=== PATIENT | female | born 1955 | race Caucasian/White ===

== ENCOUNTER → 2016-08-11 | Outpatient (CLI) | payer BC ==
--- NOTE | 2016-08-11 15:42 | CR ---
EXAMINATION: Left ankle and left foot HISTORY: Pain COMPARISON: 02/24/2015 TECHNIQUE: 3 views of the left ankle and 3 views of the left foot. FINDINGS: There is a single screw fixating the lateral malleolus. Ankle mortise appears preserved. N o fracture or dislocation is noted. The talar dome is normal. Mild degenerative changes are noted wi thin the midfoot. 2 screws are noted fixating the first metatarsal with changes secondary to bunion repair. Moderate to severe osteophytic changes are noted at the first MTP joint with joint space roosevelt rowing and hypertrophic changes. Bone mineralization is normal. No focal soft tissue swelling. IMPRESSION: 1. Single screw fixating the lateral malleolus. 2. Mild degenerative changes within the midfoot and advanced degenerative changes at the first MTP j oint. 3. Postsurgical changes secondary to bunionectomy.
== END ==
LOC: MW.CHORTHO 07:48
PROVIDERS: ATTEND Orthopaedic Surgery
DX: M79.672 Pain in left foot (principal); M25.572 Pain in left ankle and joints of left foot; Z96.7 Presence of other bone and tendon implants; Z98.890 Other specified postprocedural states
CPT/HCPCS: 73610-26-LT; 73610-LT; 73630-26-LT; 73630-LT

== ENCOUNTER → 2016-08-17 | Outpatient (CLI) | payer BC ==
--- NOTE | 2016-08-18 10:50 | US ---
EXAMINATION: Right digital diagnostic mammogram and targeted ultrasound. HISTORY: Abnormal screening. Comparison is made to previous studies dated 07/19/2016, 05/13/2014.. FINDINGS: A right ML view was obtained. Spot compression images obtained in the CC and MLO project ions. Following spot compression, the two previously demonstrated asymmetries are persistent. These measur e approximately 6 mm in size and have spiculated margins. These are relatively close to the areola a nd are located at the approximate 8 o'clock and 9 o'clock positions, 2 cm from the nipple. There is a small area of shadowing noted at the approximate 8 o'clock position of the right breast m easuring 5 mm, likely representing one of the two-view asymmetries. The asymmetry at the approximat e 9 o'clock position is not definitively characterized sonographically. IMPRESSION: BI-RADS category IV -suspicious findings. There are two periareolar asymmetries located at the approximate 8 o'clock and 9 o'clock positions of the right breast. Tissue sampling is recomm ended. Only one of the asymmetries is noted sonographically. These are amenable to stereotactic bio psy or localization. THE FALSE-NEGATIVE RATE OF MAMMOGRAM IS APPROXIMATELY 10%. MANAGEMENT OF A PALPABLE ABNORMALITY MUST BE BASED UPON CLINICAL GROUNDS. SENSITIVITY FOR DETECTION OF ABNORMALITIES IN DENSE BREASTS IS LOW. NOTE: A letter will be sent to the patient regarding findings. [facility] -- ANTONI Garcia [phone] - FAX [phone]
== END ==
LOC: MW.MAM 08:26
PROVIDERS: ATTEND Student in an Organized Health Care Education/Training Program
DX: R92.8 Other abnormal and inconclusive findings on diagnostic imaging of breast (principal)
CPT/HCPCS: 76642; G0206

== ENCOUNTER → 2016-08-19 | Outpatient (CLI) | payer BC ==
--- NOTE | 2016-08-19 10:21 | CR ---
EXAMINATION: Two-view chest (PA and Lateral views). HISTORY: Preprocedural examination. FINDINGS: The trachea is midline. The cardiomediastinal silhouette is within normal limits. No pulmonary infil trates, effusions or pneumothorax. Mild hyperinflation. Osseous structures appear osteopenic. IMPRESSION: No acute cardiopulmonary process.
[2016-08-19 10:26] LABS: CHLORIDE,CL 93 mmol/L (98-110); SODIUM,NA 129 mmol/L (136-146)
== END ==
LOC: MW.CHFP 09:42
PROVIDERS: ATTEND Student in an Organized Health Care Education/Training Program
DX: Z01.818 Encounter for other preprocedural examination (principal); R74.8 Abnormal levels of other serum enzymes; E78.00 Pure hypercholesterolemia, unspecified; R03.0 Elevated blood-pressure reading, without diagnosis of hypertension
CPT/HCPCS: 36415; 71020; 71020-26; 80048; 81001; 85025; 85610; 93005

== ENCOUNTER 2016-09-12 08:37 | Day surgery (SDC) | payer BC ==
[~2016-09-12 08:37] MED LIST: Lactated Ringers 1,000 ML IV SCH
[2016-09-12] MEDS ORDERED: Lidocaine 1% 20 ML MDV ONE (08:55)
[2016-09-12] MEDS ORDERED: Bupivacaine 0.5% 10 ML SDV ONE (08:55)
--- NOTE | 2016-09-12 09:42 | PCM.PREANE ---
Preanesthetic Assessment - Anesthesia/Transfusion/Family Hx Anesthesia History: Prior Anesthesia Without Reaction Transfusion History: No Prior Transfusion(s) - Review of Systems General: No Symptoms Pulmonary: No Symptoms Cardiovascular: No Symptoms Gastrointestinal: No symptoms Neurological: No Symptoms Other: Reports: None - Physical Assessment O2 Sat by Pulse Oximetry: 100 Respiratory Rate: 166 Vital Signs: Last Vital Signs Temp 36.4 C 09/12/16 09:00 Pulse 73 09/12/16 09:00 Resp 166 H 09/12/16 09:00 BP 163/100 H 09/12/16 09:00 Pulse Ox 100 09/12/16 09:00 Height: 1.63 m Weight: 59.421 kg ASA Class: 3 Mental Status: Alert & Oriented x3 Airway Class: Mallampati = 2 Dentition: Reports: [place](s) (multiple upper, front) Thyro-Mental Finger Breadths: 3 Mouth Opening Finger Breadths: 3 ROM/Head Extension: Full Lungs: Clear to auscultation, Normal respiratory effort Cardiovascular: Regular Rate, Regular Rhythm, No Murmurs - Allergies Allergies/Adverse Reactions: Allergies Allergy/AdvReac Type Severity Reaction Status Date / Time No Known Allergies Allergy Verified 12/15/14 08:57 - Blood Blood Available: No - Anesthesia Plan Beta Ariane: Metoprolol Med Last Dose Date: 09/12/16 Med Last Dose Time: 08:00 - Acknowledgements Anesthesia Type Planned: General Anesthesia Pt an Appropriate Candidate for the Planned Anesthesia: Yes Alternatives and Risks of Anesthesia Discussed w Pt/Guardian: Yes Pt/Guardian Understands and Agrees with Anesthesia Plan: Yes PreAnesthesia Questionnaire HEENT History: Reports: Cataract, Other (see below) Other HEENT History: wears glasses Cardiovascular History: Reports: High cholesterol, Hypertension Gastrointestinal History: Reports: Other (see below) Other Gastrointestinal History: occasional heartburn, elevated liver enzymes on last testing Genitourinary History: Reports: None 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: Musculoskeletal History: Reports: Arthritis, Fracture, Fibromyalgia Neurological History: Reports: Concussion Psychiatric History: Reports: Anxiety, Depression, Other (see below) ( claustrophobia) Endocrine/Metabolic History: Reports: Other (see below) (h/o hyponatremia) - Past Surgical History Head Surgeries/Procedures: Reports: None GI Surgical History: Reports: Appendectomy, Cholecystectomy, EGD Female Surgical History: Reports: Breast biopsy, Breast reduction, Hysterectomy Other Female Surgeries/Procedures: hx breast reduction, laparoscopy for lysis of adhesions, hysterectomy, breast bx Musculoskeletal Surgical History: Reports: Carpal tunnel, Shoulder surgery Other Musculoskeletal Surgeries/Procedures:: hx bilat. bunionectomy, shoulder surgery (clavicle resection), surgical repair fx ankle with plate and screws, CTR - SUBSTANCE USE Smoking Status *Q: Light Tobacco Smoker Tobacco Use Within Last Twelve Months: Cigarettes Days Per Week of Alcohol Use: 1 Recreational Drug Use History: No - HOME MEDS Home Medications: Home Meds Zolpidem Tartrate 10 mg PO BEDTIME PRN 12/15/14 [History] traMADol [Ultram] 50 mg PO ASDIRECTED PRN 12/15/14 [History] Metoprolol Succinate 25 mg PO DAILY 09/07/16 [History] - CURRENT (IN HOUSE) MEDS Current Meds: Current Medications Lactated Ringer's (Ringers, Lactated) 1,000 mls @ 125 mls/hr IV ASDIRECTED RAISA Last Admin: 09/12/16 09:19 Dose: 125 mls/hr Discontinued Medications Bupivacaine HCl (Sensorcaine-Mpf 0.5%) Confirm Administered Dose 20 ml .ROUTE .STK-MED ONE Stop: 09/12/16 08:56 Lidocaine HCl (Xylocaine 1%) Confirm Administered Dose 20 ml .ROUTE .STK-MED ONE Stop: 09/12/16 08:56
[2016-09-12] MEDS ORDERED: Lidocaine 2% 5 ML SDV ONE (11:02)
[2016-09-12] MEDS ORDERED: Midazolam 1 MG/ML 2 ML SDV ONE (11:03)
[2016-09-12] MEDS ORDERED: Propofol 200 MG/20 ML SDV ONE ×2 (11:03→12:17)
[2016-09-12] MEDS ORDERED: Ondansetron 4 MG/2 ML SDV ONE (11:03)
[2016-09-12] MEDS ORDERED: fentaNYL 250 MCG/5 ML SDV ONE (11:03)
[2016-09-12] MEDS: fentaNYL 100 MCG/2 ML SDV IVPUSH PRN ×2 (12:53→12:59)
[2016-09-12] MEDS ORDERED: Acetaminophen/HYDROcodone 325-5 MG Tab PO PRN (12:54)
[2016-09-12] MEDS ORDERED: Morphine 10 MG/ML Syringe IVPUSH PRN (12:54)
[2016-09-12] MEDS ORDERED: Lactated Ringers 1,000 ML IV SCH (13:00)
--- NOTE | 2016-09-12 13:00 | PCM.OPNOTE ---
- General Post-Op/Procedure Note Date of Surgery/Procedure: 09/12/16 Operative Procedure(s): Needle localization right breast biopsy Pre Op Diagnosis: Class IV mammogram Post-Op Diagnosis: Same Anesthesia Technique: Local, MAC (ASA II) Primary Surgeon: Vincenzo Mckenna Fluid Replacement, Intraop: 1,300 EBL in mLs: 5 Condition: Good Free Text/Narrative:: Dictation [id number]
--- NOTE | 2016-09-12 13:09 | PCM.POSTAN ---
POST ANESTHESIA ASSESSMENT - MENTAL STATUS Mental Status: alert, oriented - RESPIRATORY Respiratory Status: respiratory rate WNL, airway patent, O2 saturation stable - CARDIOVASCULAR CV Status: pulse rate WNL, blood pressure stable - PAIN Pain Score: 6 - POST OP HYDRATION Hydration Status: adequate & stable
--- NOTE | 2016-09-12 13:47 | MY ---
EXAMINATION: Stereotactic wire localization and specimen mammogram HISTORY: Abnormal findings COMPARISON: 08/17/2016 TECHNIQUE: The procedure, risks, and benefits were discussed with the patient. The patient was place d on the mammogram table and an inferior approach was selected. The more conspicuous mass was identi fied and the overlying area was sterilely prepped. 1% lidocaine was administered for local anesthesi a. A localization needle was advanced. An image was obtained using and ML projection demonstrated ad equate localization of the subareolar mass. The hook was deployed. The second, previously described mass was not well characterized mammographically for localization. The specimen mammogram demonstrates the region of concern included. IMPRESSION: 1. Successful mammographic guided stereotactic right breast localization. 2. The specimen mammogram demonstrates the more conspicuous mass. The second, previously described m ass was not well identified.
[2016-09-12 14:38] VITALS: BP 153/101
--- NOTE | 2016-09-12 20:13 | OR ---
SURGEON: Vincenzo Mckenna M.D. DATE OF PROCEDURE: 09/12/2016 OPERATION PERFORMED: Needle localization, right breast biopsy. ANESTHESIA: Local MAC. ASA CLASSIFICATION: II. PREOPERATIVE DIAGNOSIS: Class 4 mammogram. POSTOPERATIVE DIAGNOSIS: Class 4 mammogram. DESCRIPTION OF PROCEDURE: The patient initially was taken to Radiology, where she underwent needle localization mammographically. Following review of that, the patient was taken to the operating room and placed on the operating table in the supine position. Time-out was called for appropriate identification of the patient and procedure. The surgical site was marked by the needle localization. The right anterior chest was then prepped with Betadine solution and sterile drapes were applied. The skin around the localizing needle was infiltrated with 1% Xylocaine and 0.5% Marcaine solution. Elliptical skin incision was made around the localizing needle, stabilizing the needle with an Allis clamp. Dissection was then carried in a circumferential fashion removing the specimen around the needle and being careful not to divide the needle. The specimen, once it was removed, was sent to Radiology for radiologic confirmation. Hemostasis was obtained with the use of electrocautery. Radiologic confirmation was obtained. The wound was then inspected for hemostasis. The subcutaneous tissue was closed with running 3-0 Polysorb and the skin with subcuticular 4-0 Monocryl, reinforced with Steri- Strips. Well-padded pressure dressing was applied and tape securely in place. Sponge, needle, and instrument counts were all correct. The patient tolerated the procedure well and was taken to recovery room in stable condition. ASA classification is II. INTRAOPERATIVE FLUID REPLACEMENT: 1300 mL of crystalloid. ESTIMATED BLOOD LOSS: 5 mL. MARIYA / ALTHEA /[id number]
== END 2016-09-12 14:22 | disposition home or self-care (01) ==
LOC: MW.SDS 08:37
PROVIDERS: ATTEND Surgery
PROC: 0HBT0ZX Excision of Right Breast, Open Approach, Diagnostic (ICD-10-PCS; principal; 2016-09-12)
DX: C50.911 Malignant neoplasm of unspecified site of right female breast (principal); Z17.0 Estrogen receptor positive status [ER+]; F41.9 Anxiety disorder, unspecified; F32.9 Major depressive disorder, single episode, unspecified; I10 Essential (primary) hypertension; M19.90 Unspecified osteoarthritis, unspecified site; M19.079 Primary osteoarthritis, unspecified ankle and foot; F17.210 Nicotine dependence, cigarettes, uncomplicated; E78.00 Pure hypercholesterolemia, unspecified; M79.7 Fibromyalgia; Z87.440 Personal history of urinary (tract) infections; Z90.49 Acquired absence of other specified parts of digestive tract; Z90.710 Acquired absence of both cervix and uterus; Z98.890 Other specified postprocedural states; Z79.899 Other long term (current) drug therapy
CPT/HCPCS: 19125; 19281; 76098; 88307; A9270; J2250; J2405; J3010; J7120; 00400; J2704

== ENCOUNTER → 2016-09-14 | Outpatient (CLI) | payer BC ==
[2016-09-14 12:32] LABS: CHLORIDE,CL 101 mmol/L (98-110); SODIUM,NA 137 mmol/L (136-146)
== END ==
LOC: MW.CHFP 11:19
PROVIDERS: ATTEND Student in an Organized Health Care Education/Training Program
DX: E87.1 Hypo-osmolality and hyponatremia (principal)
CPT/HCPCS: 36415; 80048; 83930; 83935

== ENCOUNTER 2016-10-21 08:32 | Day surgery (SDC) | payer BC ==
[~2016-10-21 08:32] MED LIST changes: +Bupivacaine 0.5% 30 ML SDV ONE; +Methylene Blue 50 MG/10 ML Ampule IV ONE; +ceFAZolin 1 GM Vial ONE
[2016-10-21] MEDS ORDERED: Lidocaine 2% 5 ML SDV ONE (08:39)
[2016-10-21] MEDS ORDERED: fentaNYL 100 MCG/2 ML SDV ONE ×2 (08:39→12:31)
[2016-10-21] MEDS ORDERED: Midazolam 1 MG/ML 2 ML SDV ONE (08:39)
[2016-10-21] MEDS ORDERED: Propofol 200 MG/20 ML SDV ONE (08:39)
[2016-10-21] MEDS ORDERED: Ondansetron 4 MG/2 ML SDV ONE (08:39)
--- NOTE | 2016-10-21 08:54 | PCM.PREANE ---
Preanesthetic Assessment - Anesthesia/Transfusion/Family Hx Anesthesia History: Prior Anesthesia Without Reaction Family History of Anesthesia Reaction: No Transfusion History: No Prior Transfusion(s) - Review of Systems General: No Symptoms Pulmonary: No Symptoms Cardiovascular: No Symptoms Gastrointestinal: No symptoms Neurological: No Symptoms Other: Reports: None - Physical Assessment NPO Status Date: 10/20/16 Height: 1.57 m Weight: 59.874 kg ASA Class: 2 Mental Status: Alert & Oriented x3 Airway Class: Mallampati = 1 Dentition: Reports: Normal Dentition ROM/Head Extension: Full Lungs: Clear to auscultation, Normal respiratory effort Cardiovascular: Regular Rate, Regular Rhythm - Allergies Allergies/Adverse Reactions: Allergies Allergy/AdvReac Type Severity Reaction Status Date / Time No Known Allergies Allergy Verified 12/15/14 08:57 - Blood Blood Available: Yes - Anesthesia Plan Pre-Op Medication Ordered: None - Acknowledgements Anesthesia Type Planned: General Anesthesia Pt an Appropriate Candidate for the Planned Anesthesia: Yes Alternatives and Risks of Anesthesia Discussed w Pt/Guardian: Yes Pt/Guardian Understands and Agrees with Anesthesia Plan: Yes Additional Comments: problem list: htn, smoker PreAnesthesia Questionnaire HEENT History: Reports: Cataract, Other (See Below) Other HEENT History: wears glasses Cardiovascular History: Reports: High Cholesterol, Hypertension Gastrointestinal History: Reports: Other (See Below) Other Gastrointestinal History: occasional heartburn, elevated liver enzymes on last testing Genitourinary History: Reports: None 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: Musculoskeletal History: Reports: Arthritis, Fracture, Fibromyalgia Neurological History: Reports: Concussion Psychiatric History: Reports: Anxiety, Depression, Other (See Below) Endocrine/Metabolic History: Oncologic (Cancer) History: Reports: Breast - Past Surgical History Head Surgeries/Procedures: Reports: None GI Surgical History: Reports: Appendectomy, Cholecystectomy, EGD Female Surgical History: Reports: Breast Biopsy, Breast Reduction, Hysterectomy Other Female Surgeries/Procedures: hx breast reduction, laparoscopy for lysis of adhesions, hysterectomy, breast bx Musculoskeletal Surgical History: Reports: Carpal Tunnel, Shoulder Surgery Other Musculoskeletal Surgeries/Procedures:: hx bilat. bunionectomy, shoulder surgery (clavicle resection), surgical repair fx ankle with plate and screws, CTR - SUBSTANCE USE Smoking Status *Q: Light Tobacco Smoker Tobacco Use Within Last Twelve Months: Cigarettes Days Per Week of Alcohol Use: 1 Recreational Drug Use History: No - HOME MEDS Home Medications: Home Meds Metoprolol Succinate 25 mg PO DAILY 09/07/16 [History] Hydrocodone/Acetaminophen [Hydrocodon-Acetaminophen 5-325] 1 tab PO ASDIRECTED PRN 10/19/16 [History] - CURRENT (IN HOUSE) MEDS Current Meds: Current Medications Lactated Ringer's (Ringers, Lactated) 1,000 mls @ 125 mls/hr IV ASDIRECTED RAISA Discontinued Medications Bupivacaine HCl (Marcaine 0.5%) Confirm Administered Dose 30 ml .ROUTE .STK-MED ONE Stop: 10/21/16 07:25 Cefazolin Sodium (Ancef) Confirm Administered Dose 1 gm .ROUTE .STK-MED ONE Stop: 10/21/16 07:24 Fentanyl (Sublimaze) Confirm Administered Dose 100 mcg .ROUTE .STK-MED ONE Stop: 10/21/16 08:40 Cefazolin Sodium/Dextrose (Ancef) Confirm Administered Dose 50 mls @ as directed .ROUTE .STK-MED ONE Stop: 10/21/16 08:40 Lidocaine (Xylocaine-Mpf 2%) Confirm Administered Dose 5 ml .ROUTE .STK-MED ONE Stop: 10/21/16 08:40 Methylene Blue (Provayblue) Confirm Administered Dose 100 mg IV .STK-MED ONE Stop: 10/21/16 07:24 Midazolam HCl (Versed 1 Mg/Ml) Confirm Administered Dose 2 mg .ROUTE .STK-MED ONE Stop: 10/21/16 08:40 Ondansetron HCl (Zofran) Confirm Administered Dose 4 mg .ROUTE .STK-MED ONE Stop: 10/21/16 08:40 Propofol (Diprivan 20 Ml) Confirm Administered Dose 200 mg .ROUTE .STK-MED ONE Stop: 10/21/16 08:40
[2016-10-21] MEDS ORDERED: ePHEDrine 50 MG/ML SDV ONE (12:05)
[2016-10-21] MEDS ORDERED: HYDROmorphone 2 MG/ML Syringe ONE (13:11)
[2016-10-21] MEDS ORDERED: Ketorolac 30 MG/ML SDV ONE (13:48)
[2016-10-21] MEDS ORDERED: Acetaminophen/oxyCODONE 325-7.5 MG Tab PO PRN (13:55)
[2016-10-21] MEDS ORDERED: Morphine 10 MG/ML Syringe IVPUSH PRN (13:55)
[2016-10-21] MEDS: fentaNYL 100 MCG/2 ML SDV IVPUSH PRN ×4 (13:59→14:19)
--- NOTE | 2016-10-21 13:59 | PCM.OPNOTE ---
- General Post-Op/Procedure Note Date of Surgery/Procedure: 10/21/16 Operative Procedure(s): Right partial mastectomy with sentinel lymph node biopsy Pre Op Diagnosis: Infiltrating ductal carcinoma, right breast Post-Op Diagnosis: Same Anesthesia Technique: General LMA (ASA II) Primary Surgeon: Vincenzo Mckenna Secondary Surgeon: Shital Lowe Fluid Replacement, Intraop: 1,600 EBL in mLs: 110 Condition: Good Free Text/Narrative:: Dictation [id number]
[2016-10-21] MEDS ORDERED: Lactated Ringers 1,000 ML IV SCH (14:00)
--- NOTE | 2016-10-21 14:25 | OR ---
SURGEON: Vincenzo Mckenna M.D. DATE OF PROCEDURE: 10/21/2016 OPERATION PERFORMED: Right partial mastectomy with sentinel node biopsy. FIELD SALES MANAGER: Dr. Lowe. ANESTHESIA: General LMA. ASA CLASSIFICATION: II. PREOPERATIVE DIAGNOSIS: Biopsy-proven infiltrating ductal carcinoma of the right breast. POSTOPERATIVE DIAGNOSIS: Biopsy-proven infiltrating ductal carcinoma of the right breast. ESTIMATED BLOOD LOSS: 10 mL. FLUID REPLACEMENT: 1600 mL of crystalloid. DESCRIPTION OF PROCEDURE: The [facility] and taken to Radiology for injection of radionucleotide in anticipation of her sentinel node procedure. Once that was accomplished, the patient was returned to the Surgery Center. She was then taken to the operating room, placed on the operating table in the supine position. Time-out had been called for appropriate identification of the patient and procedure and the surgical site had been marked prior to the patient entering the operating room. Thigh-high TEDs and sequential compression boots were placed. The right chest and right upper extremity were prepped with Betadine solution. Sterile drapes were applied including draping the arm into stockinette. The breast was approached first. Elliptical excision of the previous incision was carried out and deepened through the breast tissue excising the biopsy cavity in its entirety. Bleeding sites were electrocoagulated. The wound was then packed open. The Shiraz counter had been used prior to the patient being prepped and also prior to the patient being prepped, 0.4 mL of methylene blue had been injected into the subdermal tissue of the right breast. There had been good uptake into the lymphatics. The [place] counter was then used and there were high counts in the 4000 to 5000 range at the nipple-areolar complex at the 8 o'clock position. This did not tail out into the axilla very well. We did have counts in the 40 to 100 range and it was elected to place our incision high in the axilla over the area of concern. The skin incision was then made and deepened into the subcutaneous tissue. Using gentle dissection, we were able to deepened the incision into the axilla and eventually obtain area of counts in the 200 to 300 range. This area was then removed and the Shiraz counter used once the tissue was explanted and again the counts remained in the 200 to 300 range. This tissue was then sent to pathology for frozen section along with the breast specimen for permanent section. The wounds were inspected for hemostasis and bleeding sites were electrocoagulated. Both incisions were closed in 2 layers approximating the subcutaneous tissue with running 2-0 Polysorb and the skin with subcuticular 4-0 Monocryl. Both incisions were Steri-Stripped and dressed with a well padded fluff dressing. Sponge, needle, and instrument counts were all correct. The patient tolerated the procedure well and was taken to recovery room in satisfactory condition. MARIYA / ALTHEA /[id number] ED
--- NOTE | 2016-10-21 14:38 | PCM.POSTAN ---
POST ANESTHESIA ASSESSMENT - MENTAL STATUS Mental Status: alert, oriented - RESPIRATORY Respiratory Status: respiratory rate WNL, airway patent, O2 saturation stable - CARDIOVASCULAR CV Status: pulse rate WNL, blood pressure stable - GASTROINTESTINAL GI Status: no symptoms - PAIN Pain Score: 5 - POST OP HYDRATION Hydration Status: adequate & stable - OBSERVATIONS Free Text/Narrative:: no anesthesia problems
[2016-10-21] MEDS ORDERED: Ondansetron 4 MG Tab.DIS PO ONE (15:53)
[2016-10-21 16:08] VITALS: BP 110/70
== END 2016-10-21 16:14 | disposition home or self-care (01) ==
LOC: MW.SDS 08:32
PROVIDERS: ATTEND Surgery
PROC: 0HBT0ZZ Excision of Right Breast, Open Approach (ICD-10-PCS; principal; 2016-10-21)
DX: C50.911 Malignant neoplasm of unspecified site of right female breast (principal); H26.9 Unspecified cataract; I10 Essential (primary) hypertension; M19.90 Unspecified osteoarthritis, unspecified site; M79.7 Fibromyalgia; F41.9 Anxiety disorder, unspecified; F32.9 Major depressive disorder, single episode, unspecified; F17.210 Nicotine dependence, cigarettes, uncomplicated; M19.079 Primary osteoarthritis, unspecified ankle and foot; Z87.440 Personal history of urinary (tract) infections; Z90.49 Acquired absence of other specified parts of digestive tract; Z90.710 Acquired absence of both cervix and uterus; Z98.890 Other specified postprocedural states; Z79.899 Other long term (current) drug therapy
CPT/HCPCS: 19301; 38525; 38792; A9270; A9541; J0690; J1170; J1885; J2250; J2270; J2405; J3010; J7120; Q9968; 00400; 88307; 88331; J2704

== ENCOUNTER 2017-01-16 10:54 | Day surgery (SDC) | payer BC ==
[~2017-01-16 10:54] MED LIST changes: +Acetaminophen/HYDROcodone 325-5 MG Tab PO PRN; -Bupivacaine 0.5% 30 ML SDV ONE; +Lidocaine 2% 5 ML SDV ONE; -Methylene Blue 50 MG/10 ML Ampule IV ONE; +Midazolam 1 MG/ML 2 ML SDV ONE; +Ondansetron 4 MG/2 ML SDV ONE; +Propofol 200 MG/20 ML SDV ONE; -ceFAZolin 1 GM Vial ONE; +ceFAZolin 1 GM in Premix Bag 1 BAG IV SCH; +fentaNYL 250 MCG/5 ML SDV ONE
[2017-01-16] MEDS ORDERED: Bupivacaine 0.5% 30 ML SDV ONE (11:35)
--- NOTE | 2017-01-16 11:46 | PCM.PREANE ---
Preanesthetic Assessment - Anesthesia/Transfusion/Family Hx Anesthesia History: Prior Anesthesia Without Reaction Family History of Anesthesia Reaction: No Transfusion History: No Prior Transfusion(s) - Review of Systems General: No Symptoms Pulmonary: No Symptoms Cardiovascular: No Symptoms Gastrointestinal: No Symptoms Neurological: No Symptoms Other: Reports: None - Physical Assessment NPO Status Date: 01/15/17 Height: 1.57 m Weight: 59.874 kg ASA Class: 2 Mental Status: Alert & Oriented x3 Airway Class: Mallampati = 1 Dentition: Reports: Normal Dentition ROM/Head Extension: Full Lungs: Clear to Auscultation, Normal Respiratory Effort Cardiovascular: Regular Rate, Regular Rhythm - Allergies Allergies/Adverse Reactions: Allergies Allergy/AdvReac Type Severity Reaction Status Date / Time No Known Allergies Allergy Verified 12/15/14 08:57 - Anesthesia Plan Pre-Op Medication Ordered: None - Acknowledgements Anesthesia Type Planned: General Anesthesia Pt an Appropriate Candidate for the Planned Anesthesia: Yes Alternatives and Risks of Anesthesia Discussed w Pt/Guardian: Yes Pt/Guardian Understands and Agrees with Anesthesia Plan: Yes Additional Comments: pmh:smoker, hx of hyponatremia na=3.2 01/13, htn, anx/dep PreAnesthesia Questionnaire HEENT History: Reports: Cataract, Other (See Below) Other HEENT History: wears glasses Cardiovascular History: Reports: High Cholesterol, Hypertension Gastrointestinal History: Reports: Other (See Below) Other Gastrointestinal History: occasional heartburn, elevated liver enzymes on last testing Genitourinary History: Reports: None 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: Musculoskeletal History: Reports: Arthritis, Fracture, Fibromyalgia Neurological History: Reports: Concussion Psychiatric History: Reports: Anxiety, Depression, Other (See Below) Oncologic (Cancer) History: Reports: Breast - Past Surgical History Head Surgeries/Procedures: Reports: None GI Surgical History: Reports: Appendectomy, Cholecystectomy, EGD Female Surgical History: Reports: Breast Biopsy, Breast Reduction, Hysterectomy Other Female Surgeries/Procedures: hx breast reduction, laparoscopy for lysis of adhesions, hysterectomy, breast bx Musculoskeletal Surgical History: Reports: Carpal Tunnel, Shoulder Surgery Other Musculoskeletal Surgeries/Procedures:: hx bilat. bunionectomy, shoulder surgery (clavicle resection), surgical repair fx ankle with plate and screws, CTR - SUBSTANCE USE Smoking Status *Q: Light Tobacco Smoker Tobacco Use Within Last Twelve Months: Cigarettes Days Per Week of Alcohol Use: 1 Recreational Drug Use History: No - HOME MEDS Home Medications: Home Meds Metoprolol Succinate 25 mg PO DAILY 09/07/16 [History] Desvenlafaxine [Desvenlafaxine ER] 50 mg PO DAILY 01/10/17 [History] - CURRENT (IN HOUSE) MEDS Current Meds: Current Medications Hydrocodone Bitart/Acetaminophen (Ira 325-5 Mg) 1 - 2 tab PO Q4H PRN PRN Reason: Pain Lactated Ringer's (Ringers, Lactated) 1,000 mls @ 100 mls/hr IV ASDIRECTED RAISA Cefazolin Sodium/Dextrose 1 gm (/ Premix) 50 mls @ 100 mls/hr IV ONCALL RAISA Discontinued Medications Hydrocodone Bitart/Acetaminophen (Ira 325-5 Mg) 1 - 2 tab PO Q4H PRN PRN Reason: Pain Bupivacaine HCl (Marcaine 0.5%) Confirm Administered Dose 30 ml .ROUTE .STK-MED ONE Stop: 01/16/17 11:36 Fentanyl (Sublimaze) Confirm Administered Dose 250 mcg .ROUTE .STK-MED ONE Stop: 01/16/17 09:12 Lactated Ringer's (Ringers, Lactated) 1,000 mls @ 100 mls/hr IV ASDIRECTED RAISA Cefazolin Sodium/Dextrose 1 gm (/ Premix) 50 mls @ 100 mls/hr IV ONCALL [facility] Lidocaine (Xylocaine-Mpf 2%) Confirm Administered Dose 5 ml .ROUTE .STK-MED ONE Stop: 01/16/17 09:11 Midazolam HCl (Versed 1 Mg/Ml) Confirm Administered Dose 2 mg .ROUTE .STK-MED ONE Stop: 01/16/17 09:11 Ondansetron HCl (Zofran) Confirm Administered Dose 4 mg .ROUTE .STK-MED ONE Stop: 01/16/17 09:11 Propofol (Diprivan 20 Ml) Confirm Administered Dose 200 mg .ROUTE .STK-MED ONE Stop: 01/16/17 09:11
--- NOTE | 2017-01-16 11:50 | PCM.PREANE ---
Preanesthetic Assessment - Anesthesia/Transfusion/Family Hx Anesthesia History: Prior Anesthesia Without Reaction Family History of Anesthesia Reaction: No Transfusion History: No Prior Transfusion(s) - Review of Systems General: No Symptoms Pulmonary: No Symptoms Cardiovascular: No Symptoms Gastrointestinal: No Symptoms Neurological: No Symptoms Other: Reports: None - Physical Assessment NPO Status Date: 01/15/17 Height: 1.57 m Weight: 59.874 kg ASA Class: 2 Mental Status: Alert & Oriented x3 Airway Class: Mallampati = 1 Dentition: Reports: Normal Dentition Lungs: Clear to Auscultation, Normal Respiratory Effort Cardiovascular: Regular Rate, Regular Rhythm - Allergies Allergies/Adverse Reactions: Allergies Allergy/AdvReac Type Severity Reaction Status Date / Time No Known Allergies Allergy Verified 12/15/14 08:57 - Anesthesia Plan Pre-Op Medication Ordered: None - Acknowledgements Anesthesia Type Planned: General Anesthesia Pt an Appropriate Candidate for the Planned Anesthesia: Yes Alternatives and Risks of Anesthesia Discussed w Pt/Guardian: Yes Pt/Guardian Understands and Agrees with Anesthesia Plan: Yes Additional Comments: significant GERD, would recommend ETT. 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: Musculoskeletal History: Reports: Arthritis, Fracture, Fibromyalgia Neurological History: Reports: Concussion Psychiatric History: Reports: Anxiety, Depression, Other (See Below) Oncologic (Cancer) History: Reports: Breast - Past Surgical History Head Surgeries/Procedures: Reports: None GI Surgical History: Reports: Appendectomy, Cholecystectomy, EGD Female Surgical History: Reports: Breast Biopsy, Breast Reduction, Hysterectomy Other Female Surgeries/Procedures: hx breast reduction, laparoscopy for lysis of adhesions, hysterectomy, breast bx Musculoskeletal Surgical History: Reports: Carpal Tunnel, Shoulder Surgery Other Musculoskeletal Surgeries/Procedures:: hx bilat. bunionectomy, shoulder surgery (clavicle resection), surgical repair fx ankle with plate and screws, CTR - SUBSTANCE USE Smoking Status *Q: Light Tobacco Smoker Tobacco Use Within Last Twelve Months: Cigarettes Days Per Week of Alcohol Use: 1 Recreational Drug Use History: No - HOME MEDS Home Medications: Home Meds Metoprolol Succinate 25 mg PO DAILY 09/07/16 [History] Desvenlafaxine [Desvenlafaxine ER] 50 mg PO DAILY 01/10/17 [History] - CURRENT (IN HOUSE) MEDS Current Meds: Current Medications Hydrocodone Bitart/Acetaminophen ([place] 325-5 Mg) 1 - 2 tab PO Q4H PRN PRN Reason: Pain Lactated Ringer's (Ringers, Lactated) 1,000 mls @ 100 mls/hr IV ASDIRECTED ARISA Cefazolin Sodium/Dextrose 1 gm (/ Premix) 50 mls @ 100 mls/hr IV ONCALL RAISA Discontinued Medications Hydrocodone Bitart/Acetaminophen ([place] 325-5 Mg) 1 - 2 tab PO Q4H PRN PRN Reason: Pain Bupivacaine HCl (Marcaine 0.5%) Confirm Administered Dose 30 ml .ROUTE .STK-MED ONE Stop: 01/16/17 11:36 Fentanyl (Sublimaze) Confirm Administered Dose 250 mcg .ROUTE .STK-MED ONE Stop: 01/16/17 09:12 Lactated Ringer's (Ringers, Lactated) 1,000 mls @ 100 mls/hr IV ASDIRECTED RAISA Cefazolin Sodium/Dextrose 1 gm (/ Premix) 50 mls @ 100 mls/hr IV ONCALL [facility] Lidocaine (Xylocaine-Mpf 2%) Confirm Administered Dose 5 ml .ROUTE .STK-MED ONE Stop: 01/16/17 09:11 Midazolam HCl (Versed 1 Mg/Ml) Confirm Administered Dose 2 mg .ROUTE .STK-MED ONE Stop: 01/16/17 09:11 Ondansetron HCl (Zofran) Confirm Administered Dose 4 mg .ROUTE .STK-MED ONE Stop: 01/16/17 09:11 Propofol (Diprivan 20 Ml) Confirm Administered Dose 200 mg .ROUTE .STK-MED ONE Stop: 01/16/17 09:11
[2017-01-16] MEDS ORDERED: Dexamethasone 4 MG/ML 5 ML MDV ONE (13:34)
[2017-01-16] MEDS ORDERED: Ketorolac 30 MG/ML SDV ONE (13:57)
--- NOTE | 2017-01-16 14:30 | PCM.OPNOTE ---
- General Post-Op/Procedure Note Date of Surgery/Procedure: 01/16/17 Operative Procedure(s): L ankle HWR, deep. Excision bony exostosis left foot Post-Op Diagnosis: 1. bony exostosis left foot. 2. Painful retained HW left distal fibula Anesthesia Technique: General LMA Primary Surgeon: Jolly Reagan Fpga Engineer: Monika Escobar in mLs: 5 Condition: Good Free Text/Narrative:: tt=12 min #[id number]
[2017-01-16] MEDS: fentaNYL 100 MCG/2 ML SDV IVPUSH PRN ×2 (14:34→14:40)
--- NOTE | 2017-01-16 14:58 | PCM.POSTAN ---
POST ANESTHESIA ASSESSMENT - MENTAL STATUS Mental Status: Alert, Oriented - RESPIRATORY Respiratory Status: Respiratory Rate WNL, Airway Patent, O2 Saturation Stable - CARDIOVASCULAR CV Status: Pulse Rate WNL, Blood Pressure Stable - GASTROINTESTINAL GI Status: No Symptoms - PAIN Pain Score: 5 - POST OP HYDRATION Hydration Status: Adequate & Stable - OBSERVATIONS Free Text/Narrative:: no anesthesia problems
[2017-01-16 16:09] VITALS: BP 145/82
--- NOTE | 2017-01-16 16:54 | CR ---
EXAMINATION: Left ankle HISTORY: Surgery COMPARISON: 08/11/2016 TECHNIQUE: 2 fluoroscopic images provided FINDINGS/IMPRESSION: Operative control films demonstrate 2 views of the left ankle without acute fin dings. Previously demonstrated screw within the distal fibula is no longer appreciated.
--- NOTE | 2017-01-17 06:15 | OR ---
SURGEON: Jolly Reagan MD DATE OF PROCEDURE: 01/16/2017 PREOPERATIVE DIAGNOSES: 1. Painful retained hardware, left distal fibula. 2. Bony exostosis, left foot. POSTOPERATIVE DIAGNOSES: 1. Painful retained hardware, left distal fibula. 2. Bony exostosis, left foot. PROCEDURES: 1. Hardware removal, left distal fibula (deep implant). 2. Excision of bony exostosis, left foot. CYBER SECURITY ENGINEER: Monika Escobar PA-C. ANESTHESIA: General. ESTIMATED BLOOD LOSS: 5 mL. TOURNIQUET TIME: 12 minutes. COMPLICATIONS: None. DVT PROPHYLAXIS: Not indicated. IMPLANTS USED: None. 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 She has been bothered by persistent pain at the site of the hardware. She has also had some shoe wear irritation over the site of a bony exostosis along the lateral aspect of her foot. 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 Due to her lack of response to conservative treatment, I did recommend surgical intervention. The risks and goals of procedure were discussed with the patient and were documented preoperatively. She agreed to proceed. DESCRIPTION OF PROCEDURE: The patient was properly identified and brought to the operating room. She was transferred from the OR cart and placed on the operating room table in a supine position. General anesthesia was administered. After adequate anesthesia was obtained, a well-padded tourniquet was applied to the left lower extremity. The left lower extremity was then prepped in standard fashion using ChloraPrep solution. It was then sterilely draped. A time-out was performed to ensure correct site and procedure. Preoperative antibiotics were given. The surgical site had been marked preoperatively. The tourniquet was inflated to 250 mmHg. Incision was made over the site of the previous incision near the distal portion. The subcutaneous tissues were incised. The screw head was identified. This was removed along with the washer without difficulty. I then turned my attention to the exostosis. Incision was made centered over this. The subcutaneous tissues were incised and the tissue overlying the bone was dissected in a subperiosteal fashion. An osteotome was then used to remove the bony exostosis. A rongeur was used to smooth the edges. C-arm images confirmed successful removal of the hardware along with the bony exostosis. The wounds were then copiously irrigated with saline solution. The tourniquet was deflated. Bone wax was placed over the exostosis removal site. The deep tissues were closed with 4-0 Monocryl and the skin was closed with 3-0 nylon. Xeroform gauze was placed over the wound and a bulky dressing was applied. She was awakened from her anesthetic and transferred back to the operating room cart. She was brought to recovery room in stable condition. All needle and sponge counts were correct. HEIKE / ALTHEA /[id number]
== END 2017-01-16 16:01 | disposition home or self-care (01) ==
LOC: MW.SDS 10:54
PROVIDERS: ATTEND Orthopaedic Surgery
DX: T84.84XA Pain due to internal orthopedic prosthetic devices, implants and grafts, initial encounter (principal); M89.9 Disorder of bone, unspecified; M19.079 Primary osteoarthritis, unspecified ankle and foot; E78.00 Pure hypercholesterolemia, unspecified; I10 Essential (primary) hypertension; M19.90 Unspecified osteoarthritis, unspecified site; M79.7 Fibromyalgia; F41.9 Anxiety disorder, unspecified; F32.9 Major depressive disorder, single episode, unspecified; F17.210 Nicotine dependence, cigarettes, uncomplicated; C50.911 Malignant neoplasm of unspecified site of right female breast; Z90.49 Acquired absence of other specified parts of digestive tract; Z90.710 Acquired absence of both cervix and uterus; Z98.890 Other specified postprocedural states; Z79.899 Other long term (current) drug therapy
CPT/HCPCS: 20680; 28104; 76000; 88305; 88311; A9270; J0690; J1100; J1885; J2250; J2405; J3010; J7120; 01480; J2704

== ENCOUNTER 2017-05-19 09:16 | Day surgery (SDC) | payer BC ==
[~2017-05-19 09:16] MED LIST changes: +Bupivacaine 0.25%/EPINEPHrine 1:200,000 10 ML SDV INJECT ONE; +Bupivacaine 25%/EPINEPHrine/PF 30 ML ONE; +Lidocaine 1% with EPINEPHrine 1:100,000 20 ML MDV INJECT ONE; -Lidocaine 2% 5 ML SDV ONE; -Midazolam 1 MG/ML 2 ML SDV ONE; -Ondansetron 4 MG/2 ML SDV ONE; -Propofol 200 MG/20 ML SDV ONE; -ceFAZolin 1 GM in Premix Bag 1 BAG IV SCH; +ceFAZolin 2 GM in Premix Bag 1 BAG IV ONE; -fentaNYL 250 MCG/5 ML SDV ONE
--- NOTE | 2017-05-19 10:24 | PCM.PREANE ---
Preanesthetic Assessment - Anesthesia/Transfusion/Family Hx Anesthesia History: Prior Anesthesia Without Reaction Family History of Anesthesia Reaction: No Transfusion History: No Prior Transfusion(s) Intubation History: Unknown - Review of Systems General: No Symptoms Pulmonary: No Symptoms Cardiovascular: No Symptoms Gastrointestinal: No Symptoms Neurological: No Symptoms Other: Reports: None - Physical Assessment O2 Sat by Pulse Oximetry: 96 Respiratory Rate: 16 Vital Signs: Last Vital Signs Temp 36.7 C 05/19/17 09:37 Pulse 71 05/19/17 09:37 Resp 16 05/19/17 09:37 BP 185/101 H 05/19/17 10:00 Pulse Ox 96 05/19/17 09:37 Height: 1.63 m Weight: 58.967 kg ASA Class: 3 Mental Status: Alert & Oriented x3 Airway Class: Mallampati = 2 Dentition: Reports: [place](s) (multiple upper front) Thyro-Mental Finger Breadths: 3 Mouth Opening Finger Breadths: 3 ROM/Head Extension: Limited/Partial Lungs: Clear to Auscultation, Normal Respiratory Effort Cardiovascular: Regular Rate, Regular Rhythm - Allergies Allergies/Adverse Reactions: Allergies Allergy/AdvReac Type Severity Reaction Status Date / Time No Known Allergies Allergy Verified 12/15/14 08:57 - Blood Blood Available: No - Anesthesia Plan Pre-Op Medication Ordered: None Beta Ariane: Metoprolol Med Last Dose Date: 05/19/17 Med Last Dose Time: 08:00 - Acknowledgements Anesthesia Type Planned: General Anesthesia Pt an Appropriate Candidate for the Planned Anesthesia: Yes Alternatives and Risks of Anesthesia Discussed w Pt/Guardian: Yes Pt/Guardian Understands and Agrees with Anesthesia Plan: Yes PreAnesthesia Questionnaire HEENT History: Reports: Allergic Rhinitis, Cataract, Other (See Below) Other HEENT History: wears glasses Cardiovascular History: Reports: High Cholesterol, Hypertension Gastrointestinal History: Reports: Other (See Below) Other Gastrointestinal History: occasional heartburn, dysphagia, h/o elevated liver enzymes Genitourinary History: Reports: None 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: Musculoskeletal History: Reports: Arthritis, Fracture, Fibromyalgia Neurological History: Reports: Concussion Psychiatric History: Reports: Anxiety, Depression, Other (See Below) ( claustrophobia) Endocrine/Metabolic History: Reports: None Oncologic (Cancer) History: Reports: Breast (infiltrating ductal carcinoma of right breast) - Past Surgical History Head Surgeries/Procedures: Reports: None GI Surgical History: Reports: Appendectomy, Cholecystectomy, EGD Female Surgical History: Reports: Breast Biopsy, Breast Reduction, Hysterectomy Other Female Surgeries/Procedures: hx breast reduction, laparoscopy for lysis of adhesions, hysterectomy, breast bx, breast lumpectomy Musculoskeletal Surgical History: Reports: Carpal Tunnel, Shoulder Surgery Other Musculoskeletal Surgeries/Procedures:: hx bilat. bunionectomy, shoulder surgery (clavicle resection), surgical repair fx ankle with plate and screws, CTR, removal of screw in ankle - SUBSTANCE USE Smoking Status *Q: Current Some Day Smoker Tobacco Use Within Last Twelve Months: Cigarettes Days Per Week of Alcohol Use: 1 Recreational Drug Use History: No - HOME MEDS Home Medications: Home Meds Metoprolol Succinate 25 mg PO DAILY 09/07/16 [History] Desvenlafaxine [Desvenlafaxine ER] 50 mg PO DAILY 01/10/17 [History] Anastrozole [Arimidex] 1 mg PO DAILY 05/16/17 [History] Calcium Carbonate [Calcium] 500 mg CHEW BID 05/16/17 [History] Cholecalciferol (Vitamin D3) [Vitamin D3] 1,000 units PO DAILY 05/16/17 [History ] - CURRENT (IN HOUSE) MEDS Current Meds: Current Medications Hydrocodone Bitart/Acetaminophen ([place] 325-5 Mg) 1 tab PO Q4H PRN PRN Reason: Pain Lactated Ringer's (Ringers, Lactated) 1,000 mls @ 125 mls/hr IV ASDIRECTED RAISA Last Admin: 05/19/17 09:39 Dose: 125 mls/hr Discontinued Medications Bupivacaine HCl/Epinephrine Bitart ([place] 0.25%/Epinephrine 1:200,000) 10 ml INJECT ONETIME ONE Stop: 05/19/17 09:01 Cefazolin Sodium/Dextrose 2 gm (/ Premix) 50 mls @ 100 mls/hr IV ONETIME ONE Stop: 05/18/17 18:16 Bupivacaine HCl/Epinephrine Bitart (Sensorc Mpf 0.25%-Epi 1:[id number]) Confirm Administered Dose 30 mls @ as directed .ROUTE .STK-MED ONE Stop: 05/19/17 07:23 Lidocaine/Epinephrine (Xylocaine 1% With Epinephrine 1:100,000) 50 ml INJECT ONETIME ONE Stop: 05/19/17 09:01
[2017-05-19] MEDS ORDERED: Midazolam 1 MG/ML 2 ML SDV ONE (10:49)
[2017-05-19] MEDS ORDERED: fentaNYL 100 MCG/2 ML SDV ONE ×3 (10:49→12:47)
[2017-05-19] MEDS ORDERED: Propofol 200 MG/20 ML SDV ONE (10:49)
[2017-05-19] MEDS ORDERED: Lidocaine 2% 5 ML SDV ONE (10:49)
[2017-05-19] MEDS ORDERED: ceFAZolin 1 GM Vial ONE ×2 (11:45→11:46)
[2017-05-19] MEDS ORDERED: Sodium Chloride 0.9% 20 ML ONE (11:45)
[2017-05-19] MEDS ORDERED: ePHEDrine 50 MG/ML SDV ONE (11:49)
[2017-05-19] MEDS ORDERED: Phenylephrine/Normal Saline 100 MCG/ML 10 ML Syringe ONE (11:52)
[2017-05-19] MEDS ORDERED: Lidocaine 1% with EPINEPHrine 1:100,000 20 ML MDV ONE (11:55)
[2017-05-19] MEDS ORDERED: Ondansetron 4 MG/2 ML SDV ONE (12:03)
[2017-05-19] MEDS ORDERED: HYDROmorphone 2 MG/ML Syringe IVPUSH PRN (12:59)
[2017-05-19] MEDS ORDERED: fentaNYL 100 MCG/2 ML SDV IVPUSH PRN (13:24)
[2017-05-19] MEDS: fentaNYL 100 MCG/2 ML SDV IVPUSH PRN ×2 (13:27→13:33)
--- NOTE | 2017-05-19 13:49 | PCM.POSTAN ---
POST ANESTHESIA ASSESSMENT - MENTAL STATUS Mental Status: Alert, Oriented - RESPIRATORY Respiratory Status: Respiratory Rate WNL, Airway Patent, O2 Saturation Stable - CARDIOVASCULAR CV Status: Pulse Rate WNL, Blood Pressure Stable - GASTROINTESTINAL GI Status: No Symptoms - PAIN Pain Score: 6 - POST OP HYDRATION Hydration Status: Adequate & Stable - OBSERVATIONS Free Text/Narrative:: no anesthesia problems
[2017-05-19 14:53] VITALS: BP 127/83
--- NOTE | 2017-05-19 15:27 | PCM48HPAN ---
Post Anesthesia Note - EVALUATION WITHIN 48HRS OF ANESTHETIC Vital Signs in Normal Range: Yes Patient Participated in Evaluation: Yes Respiratory Function Stable: Yes Airway Patent: Yes Cardiovascular Function Stable: Yes Hydration Status Stable: Yes Pain Control Satisfactory: Yes Nausea and Vomiting Control Satisfactory: Yes Mental Status Recovered: Yes
--- NOTE | 2017-05-19 20:07 | OR ---
SURGEON: DOROTHY BERMAN MD DATE OF PROCEDURE: 05/19/2017 PREOPERATIVE DIAGNOSES: Right breast cancer lumpectomy deformity and left breast scar. POSTOPERATIVE DIAGNOSES: Right breast cancer lumpectomy deformity and left breast scar, here for breast reconstruction. PROCEDURES: 1. Right breast reconstruction with fat grafting from the abdomen. 2. Left breast scar revision intermediate repair of 7 cm total length of laceration. INDICATIONS: Ms. Del Rio is a 62-year-old female who has had lumpectomy on the right side for a mass. Unfortunately, she has now left with size discrepancy and this bothers her significantly. Risks and benefits of fat grafting for the small approximately 100 mL difference was discussed with her and she was in agreement to proceed. Risks were including, but not limited to bleeding, infection, damage to underlying or overlying structures, possible need for future interventions, possible scarring. PROCEDURE IN DETAIL: After informed consent was obtained and placed on the chart, the patient was brought to the operating theater and laid in supine position. After adequate general anesthetic was obtained, the area was prepped and a time-out was completed to confirm side and site. There was minor difficulties with machine, but these were easily resolved and the tumescent of 50 mL of lidocaine 1% with epinephrine and 1 L of LR was infiltrated into the abdominal area with stab incisions. After allowed to sit, the power-assisted liposuction machine was used to aspirate approximately 200 mL of fat and tumescent. A super-wet technique was used. Once isolated, the fat was suctioned to allow isolation without any fluid and this was aspirated into 60 mL syringes. Small aliquots of injection were made using a small [place] cannula in the right breast in a layered fashion. This was done through 3 small stab incisions. Once adequately infiltrated approximately 120 total milliliters of fat, the patient was sat up and symmetry in size was appreciated with the right being slightly larger to accommodate for the resumption expected. Once this was completed, the stab wounds were dressed with Steri-Strips and the patient was laid back in the supine position. The small marked areas on the left breast for a total length of 7 cm of scar were revised excising this and closing in an intermediate fashion with a deep 3-0 Stratafix and a running 4-0 Stratafix for the skin. These were dressed with Steri-Strips as well. The patient was dressed with fluffs and placed in a compression bra. She tolerated this well and all counts and needles were correct at the end of the case. FOLLOWUP INSTRUCTIONS: The patient will see us in 1 week, sooner if any problems, questions, or concerns and was placed in a compression bra and a compression garment after this. HEGGTCARMELLA / ALTHEA /[id number]
== END 2017-05-19 15:14 | disposition home or self-care (01) ==
LOC: MW.SDS 09:16
PROVIDERS: ATTEND Plastic Surgery
DX: Z42.1 Encounter for breast reconstruction following mastectomy (principal); N64.89 Other specified disorders of breast; L90.5 Scar conditions and fibrosis of skin; C50.911 Malignant neoplasm of unspecified site of right female breast; F32.9 Major depressive disorder, single episode, unspecified; F40.240 Claustrophobia; M79.7 Fibromyalgia; M19.90 Unspecified osteoarthritis, unspecified site; I10 Essential (primary) hypertension; E78.00 Pure hypercholesterolemia, unspecified; Z79.811 Long term (current) use of aromatase inhibitors; Z79.899 Other long term (current) drug therapy; F17.210 Nicotine dependence, cigarettes, uncomplicated; Z90.710 Acquired absence of both cervix and uterus; Z90.11 Acquired absence of right breast and nipple; Z98.890 Other specified postprocedural states
CPT/HCPCS: 11406; 12032; 19366; A9270; J0690; J1170; J2250; J2405; J3010; J7120; 00402; J2704

== ENCOUNTER 2017-09-01 07:55 | Day surgery (SDC) | payer BC ==
--- NOTE | 2017-09-01 08:28 | PCM.PREANE ---
Preanesthetic Assessment - Anesthesia/Transfusion/Family Hx Anesthesia History: Prior Anesthesia Without Reaction Family History of Anesthesia Reaction: No Transfusion History: No Prior Transfusion(s) Intubation History: Unknown - Review of Systems General: No Symptoms Pulmonary: No Symptoms Cardiovascular: No Symptoms Gastrointestinal: No Symptoms, Difficulty Swallowing (progressive) Neurological: No Symptoms Other: Reports: None - Physical Assessment Height: 1.6 m Weight: 58.967 kg ASA Class: 3 Mental Status: Alert & Oriented x3 Airway Class: Mallampati = 2 Dentition: Reports: Normal Dentition, [place](s) (multiple crowns () Thyro-Mental Finger Breadths: 3 Mouth Opening Finger Breadths: 3 ROM/Head Extension: Full Lungs: Clear to Auscultation, Normal Respiratory Effort Cardiovascular: Regular Rate, Regular Rhythm - Allergies Allergies/Adverse Reactions: Allergies Allergy/AdvReac Type Severity Reaction Status Date / Time No Known Allergies Allergy Verified 08/29/17 10:53 - Blood Blood Available: No - Anesthesia Plan Pre-Op Medication Ordered: None - Acknowledgements Anesthesia Type Planned: MAC Pt an Appropriate Candidate for the Planned Anesthesia: Yes Alternatives and Risks of Anesthesia Discussed w Pt/Guardian: Yes Pt/Guardian Understands and Agrees with Anesthesia Plan: Yes PreAnesthesia Questionnaire HEENT History: Reports: Allergic Rhinitis, Cataract, Other (See Below) Other HEENT History: wears glasses Cardiovascular History: Reports: High Cholesterol, Hypertension Gastrointestinal History: Reports: Other (See Below) Other Gastrointestinal History: occasional heartburn, progressive dysphagia, elevated liver enzymes Genitourinary History: Reports: None 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: Musculoskeletal History: Reports: Arthritis, Fracture Neurological History: Reports: Other (See Below) (neuralgia) Psychiatric History: Reports: Anxiety, Depression, Other (See Below) ( claustrophobia) Endocrine/Metabolic History: Reports: None Oncologic (Cancer) History: Reports: Breast (right side) Dermatologic History: Reports: None - Past Surgical History Head Surgeries/Procedures: Reports: None GI Surgical History: Reports: Appendectomy, Cholecystectomy, Colonoscopy, EGD Female Surgical History: Reports: Breast Biopsy, Breast Reconstruction, Breast Reduction, Hysterectomy Other Female Surgeries/Procedures: hx breast reduction, laparoscopy for lysis of adhesions, hysterectomy, breast lumpectomy, sentinel lymph node bx Musculoskeletal Surgical History: Reports: Carpal Tunnel, Shoulder Surgery Other Musculoskeletal Surgeries/Procedures:: hx bilat. bunionectomy, shoulder surgery (clavicle resection), surgical repair fx ankle with plate and screws, CTR, removal of screw in ankle - SUBSTANCE USE Smoking Status *Q: Light Tobacco Smoker Tobacco Use Within Last Twelve Months: Cigarettes Days Per Week of Alcohol Use: 1 Recreational Drug Use History: No - HOME MEDS Home Medications: Home Meds Metoprolol Succinate 25 mg PO DAILY 09/07/16 [History] Desvenlafaxine [Desvenlafaxine ER] 100 mg PO DAILY 01/10/17 [History] Anastrozole [Arimidex] 1 mg PO DAILY 05/16/17 [History] Calcium Carbonate [Calcium] 500 mg CHEW BID 05/16/17 [History] Cholecalciferol (Vitamin D3) [Vitamin D3] 1,000 units PO DAILY 05/16/17 [History ]
[2017-09-01] MEDS ORDERED: Lactated Ringers 1,000 ML IV SCH ×2 (08:30→10:15)
[2017-09-01] MEDS ORDERED: Propofol 200 MG/20 ML SDV ONE ×3 (09:17→09:57)
[2017-09-01] MEDS ORDERED: Lidocaine 2% 5 ML SDV ONE (09:17)
[2017-09-01] MEDS ORDERED: fentaNYL 100 MCG/2 ML SDV ONE (09:17)
[2017-09-01] MEDS ORDERED: Midazolam 1 MG/ML 2 ML SDV ONE (09:17)
[2017-09-01] MEDS ORDERED: ePHEDrine 50 MG/ML SDV ONE (09:44)
--- NOTE | 2017-09-01 10:11 | PCM.OPNOTE ---
- General Post-Op/Procedure Note Date of Surgery/Procedure: 09/01/17 Operative Procedure(s): Esophagogastroduodenoscopy with biopsy. Colonoscopy. Pre Op Diagnosis: Progressive dysphagia. Desire for colorectal cancer screening. Post-Op Diagnosis: Mild to moderate gastritis. Hiatal hernia. Presbyesophagus. No evidence of colonic neoplasia. Anesthesia Technique: MAC (ASA III) Primary Surgeon: Vincenzo Mckenna Manager Career: [employer] Medina Condition: Good Free Text/Narrative:: Dictation [id number] CPT CODE [id number]
[2017-09-01 11:05] VITALS: BP 133/87
--- NOTE | 2017-09-01 12:34 | OR ---
SURGEON: Vincenzo Mckenna M.D. DATE OF PROCEDURE: 09/01/2017 OPERATION PERFORMED: Esophagogastroduodenoscopy with biopsy. DIESEL MECHANIC APPRENTICE: Dr. Medina, PGY-2. ANESTHESIA: MAC. ASA CLASSIFICATION: III. PREOPERATIVE DIAGNOSIS: Persistent dysphagia. POSTOPERATIVE DIAGNOSES: 1. [id number] gastritis. 2. Hiatal hernia. DESCRIPTION OF PROCEDURE: The patient was taken to the endoscopy room and positioned on the endoscopy table in the left lateral decubitus position. Time-out was called for appropriate identification of the patient and procedure. Monitored anesthesia care was provided. The bite block was placed between the patient's teeth and the gastroscope inserted through the bite block into the oropharynx where it was subsequently advanced through the esophagus and stomach into the duodenum, and examination carried out in a retrograde fashion. The duodenum shows no acute inflammatory changes or ulcerations. Stomach shows a [id number] gastritis. Antral biopsies were obtained to look for the presence of Helicobacter pylori. The gastroscope was then retroflexed to visualize the proximal stomach where hiatal hernia was identified. No proximal gastric lesions were identified. Specifically, no ulcers or tumors were seen. The gastroscope was then straightened and slowly withdrawn. The hiatal hernia was visualized from above. The GE junction was well defined and shows no acute inflammatory changes. The esophagus demonstrates poor contractility with tertiary contractions, but no significant longitudinal stripping waves. As the scope was withdrawn, the vocal cords were visualized and noted to move symmetrically. The gastroscope was then removed with the patient having tolerated the procedure well. Following colonoscopy, she was taken to recovery room in stable condition. MARIYA / ALTHEA /[id number]
--- NOTE | 2017-09-01 12:49 | OR ---
SURGEON: Vincenzo Mckenna M.D. DATE OF PROCEDURE: 09/01/2017 OPERATION PERFORMED: Colonoscopy. ANESTHESIA: MAC. ASA CLASSIFICATION: III. PREOPERATIVE DIAGNOSIS: Desire for colorectal cancer screening. POSTOPERATIVE DIAGNOSIS: No evidence of neoplasia. DESCRIPTION OF PROCEDURE: With the patient having completed esophagogastroduodenoscopy, colonoscopy was begun. The colonoscope was inserted into the rectum and advanced with minimal difficulty to the cecum where the colonoscope was retroflexed to visualize the ascending colon from below. The colonoscope was then straightened and slowly withdrawn. The cecum, ascending colon, hepatic flexure, transverse colon, splenic flexure, descending colon, sigmoid colon, and rectum were very well visualized. No tumors, polyps, diverticula, angiodysplasia or inflammatory bowel disease was noted anywhere in the lower gastrointestinal tract. Once the colonoscope was withdrawn to the rectum, it was retroflexed to visualize the anal orifice from above. No tumors, polyps, or acute hemorrhoidal changes were noted. The colonoscope was then straightened, the rectum aspirated, and the colonoscope removed. The patient tolerated the procedure well and was taken to recovery room in stable condition. MARIYA [place] /[id number]
== END 2017-09-01 10:45 | disposition home or self-care (01) ==
LOC: MW.SDS 07:55
PROVIDERS: ATTEND Surgery
DX: Z12.11 Encounter for screening for malignant neoplasm of colon (principal); K29.50 Unspecified chronic gastritis without bleeding; K44.9 Diaphragmatic hernia without obstruction or gangrene; K22.8 Other specified diseases of esophagus; E78.00 Pure hypercholesterolemia, unspecified; I10 Essential (primary) hypertension; F32.9 Major depressive disorder, single episode, unspecified; F41.9 Anxiety disorder, unspecified; F17.200 Nicotine dependence, unspecified, uncomplicated; Z79.899 Other long term (current) drug therapy; Z90.49 Acquired absence of other specified parts of digestive tract; Z90.710 Acquired absence of both cervix and uterus; Z98.890 Other specified postprocedural states
CPT/HCPCS: 43239; 45378; J2250; J3010; J7120; 00813; 88305; 88312; J2704

== ENCOUNTER 2018-02-14 12:36 | Observation (INO) | payer BC ==
[2018-02-14] MEDS ORDERED: Sodium Chloride 0.9% 1,000 ML IV ONE ×2 (12:43→14:16)
[2018-02-14] MEDS ORDERED: Aspirin 81 MG Tab.Chew PO ONE (12:43)
--- NOTE | 2018-02-14 14:07 | CR ---
EXAMINATION: Portable chest radiograph. HISTORY: Pain. Comparison: 08/19/2016 FINDINGS: The trachea is midline. The cardiomediastinal silhouette is within normal limits. No pulmonary infilt rates, effusions or pneumothorax. Osseous structures appear unremarkable. IMPRESSION: No acute cardiopulmonary process.
[2018-02-14] MEDS: Metoprolol Tartrate 5 MG/5 ML SDV IVPUSH SCH ×3 (14:22→15:26)
[2018-02-14] MEDS: Nitroglycerin 0.4 MG Tab.SL SL PRN ×3 (14:40→14:52)
--- NOTE | 2018-02-14 15:13 | EDM.PDOC ---
ED HPI GENERAL MEDICAL PROBLEM - General Chief Complaint: Cardiovascular Problem Stated Complaint: chest pain Time Seen by Provider: 02/14/18 15:10 Source of Information: Reports: Patient - History of Present Illness INITIAL COMMENTS - FREE TEXT/NARRATIVE: HISTORY AND PHYSICAL: History of present illness: []Patient presents with chest pain and headache and the oncology clinic she is hypertensive 220 over 1 teens while at the clinic they sent her over for evaluation Has a history of breast cancer with radiation treatment last performed one year prior no other chemotherapy she is on no hormone therapy was in for a checkup today she is a known drinker she admits to drinking a case of beer weekly, currently dry tongue and oral mucosa dry she has skin tenting on the dorsum of her hands Headache is 4 out of 10 nonradiating diffuse chest pain 3-4 out of 10 nonradiating No fever nausea vomiting chills sweats no dizziness or palpitation no bowel or urine symptoms Review of systems: As per history of present illness and below otherwise all systems reviewed and negative. Past medical history: As per history of present illness and as reviewed below otherwise noncontributory. Surgical history: As per history of present illness and as reviewed below otherwise noncontributory. Social history: No reported history of drug or alcohol abuse. Family history: As per history of present illness and as reviewed below otherwise noncontributory. Physical exam: HEENT: Atraumatic, normocephalic, pupils reactive, negative for conjunctival pallor or scleral icterus, mucous membranes moist, throat clear, neck supple, nontender, trachea midline. Lungs: Clear to auscultation, breath sounds equal bilaterally, chest nontender. Heart: S1S2, regular, negative for clicks, rubs, or JVD. Abdomen: Soft, nondistended, nontender. Negative for masses or hepatosplenomegaly. Negative for costovertebral tenderness. Pelvis: Stable nontender. Genitourinary: Deferred. Rectal: Deferred. Extremities: Atraumatic, negative for cords or calf pain. Neurovascular unremarkable. Neuro: Awake, alert, oriented. Cranial nerves II through XII unremarkable. Cerebellum unremarkable. Motor and sensory unremarkable throughout. Exam nonfocal. Diagnostics: [CBC CMP on file from oncology clinic Troponin INR UA ] Therapeutics: [Liter normal saline bolus Lopressor 5 mg IV Nitroglycerin 0.4 sublingual 3 ] Impression: [ dehydration Hyponatremia likely secondary to above Hypertension uncontrolled Atypical chest pain Hypertensive emergenresolved Definitive disposition and diagnosis as appropriate pending reevaluation and review of above. head Pain Score (Numeric/FACES): 3 chest Pain Score (Numeric/FACES): 3 - Related Data Allergies Allergy/AdvReac Type Severity Reaction Status Date / Time No Known Allergies Allergy Verified 02/14/18 12:47 Home Meds: Home Meds Metoprolol Succinate 25 mg PO DAILY 09/07/16 [History] Calcium Carbonate [Calcium] 500 mg CHEW BID 05/16/17 [History] Cholecalciferol (Vitamin D3) [Vitamin D3] 1,000 units PO DAILY 05/16/17 [History ] Anastrozole [Arimidex] 1 mg PO DAILY 02/14/18 [History] FLUoxetine [PROzac] 20 mg PO BID 02/14/18 [History] Past Medical History HEENT History: Reports: Allergic Rhinitis, Cataract, Other (See Below) Other HEENT History: wears glasses Cardiovascular History: Reports: Hypertension Gastrointestinal History: Reports: Other (See Below) Other Gastrointestinal History: occasional heartburn, progressive dysphagia, elevated liver enzymes Genitourinary History: Reports: None 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: Musculoskeletal History: Reports: Arthritis, Fracture Neurological History: Reports: Other (See Below) Psychiatric History: Reports: Anxiety, Depression, Other (See Below) Endocrine/Metabolic History: Reports: None Oncologic (Cancer) History: Reports: Breast Dermatologic History: Reports: None - Infectious Disease History Infectious Disease History: Reports: Chicken Pox, Mononucleosis, Mumps - Past Surgical History Head Surgeries/Procedures: Reports: None GI Surgical History: Reports: Appendectomy, Cholecystectomy, Colonoscopy, EGD Female Surgical History: Reports: Breast Biopsy, Breast Reconstruction, Breast Reduction, Hysterectomy Other Female Surgeries/Procedures: hx breast reduction, laparoscopy for lysis of adhesions, hysterectomy, breast lumpectomy, sentinel lymph node bx Musculoskeletal Surgical History: Reports: Carpal Tunnel, Shoulder Surgery Other Musculoskeletal Surgeries/Procedures:: hx bilat. bunionectomy, shoulder surgery (clavicle resection), surgical repair fx ankle with plate and screws, CTR, removal of screw in ankle Social & Family History - Family History Family Medical History: Noncontributory - Tobacco Use Smoking Status *Q: Current Every Day Smoker Years of Tobacco use: 20 Packs/Tins Daily: 0.6 Second Hand Smoke Exposure: Yes - Caffeine Use Caffeine Use: Reports: None Caffeine Use Comment: occassionally - Recreational Drug Use Recreational Drug Use: No ED ROS GENERAL - Review of Systems Review Of Systems: See Below ED EXAM, GENERAL - Physical Exam Exam: See Below Course - Vital Signs Last Recorded V/S: Last Vital Signs Temp 97.9 F 02/14/18 12:51 Pulse 85 02/14/18 14:56 Resp 16 02/14/18 14:56 BP 172/112 H 02/14/18 14:56 Pulse Ox 95 02/14/18 14:56 - Orders/Labs/Meds Orders: Active Orders 24 hr Category Date Time Status EKG Documentation Completion [RC] STAT Care 02/14/18 12:43 Active Sodium Chloride 0.9% [Normal Saline] 1,000 ml Med 02/14/18 14:16 Active IV .Bolus Medication Orders Sodium Chloride (Normal Saline) 1,000 mls @ 999 mls/hr IV .Bolus ONE Stop: 02/14/18 15:16 Last Admin: 02/14/18 14:26 Dose: 999 mls/hr Labs: Laboratory Tests 02/14/18 02/14/18 02/14/18 Range/Units 12:53 12:53 13:49 INR 0.99 Troponin I < 0.050 (0.000-0.056) ng/mL Urine Color YELLOW Urine Appearance CLEAR Urine pH 6.5 (5.0-8.0) Ur Specific [place] 1.010 (1.001-1.035) Urine Protein NEGATIVE (NEGATIVE) mg/dL Urine Glucose (UA) NEGATIVE (NEGATIVE) mg/dL Urine Ketones NEGATIVE (NEGATIVE) mg/dL Urine Occult Blood TRACE-INTACT (NEGATIVE) Urine Nitrite NEGATIVE (NEGATIVE) Urine Bilirubin NEGATIVE (NEGATIVE) Urine Urobilinogen 0.2 (<2.0) EU/dL Ur Leukocyte Esterase NEGATIVE (NEGATIVE) Urine RBC 0-1 (0-2/HPF) Urine WBC 0-1 (0-5/HPF) Ur Epithelial Cells RARE (NONE-FEW) Amorphous Sediment RARE (NEGATIVE) Urine Bacteria RARE (NEGATIVE) Meds: Medications Generic Name Dose Route Start Last Admin Trade Name Freq PRN Reason Stop Dose Admin Sodium Chloride 1,000 mls @ 999 mls/hr 02/14/18 14:16 02/14/18 14:26 Normal Saline IV 02/14/18 15:16 999 mls/hr .Bolus ONE Administration Discontinued Medications Generic Name Dose Route Start Last Admin Trade Name Freq PRN Reason Stop Dose Admin Aspirin 324 mg 02/14/18 12:43 02/14/18 12:59 Aspirin PO 02/14/18 12:44 324 mg ONETIME ONE Administration Sodium Chloride 1,000 mls @ 999 mls/hr 02/14/18 12:43 02/14/18 13:00 Normal Saline IV 02/14/18 13:43 999 mls/hr STAT ONE Administration Metoprolol Tartrate 5 mg 02/14/18 14:15 02/14/18 14:31 Lopressor IVPUSH 02/14/18 14:26 5 mg Q5M RAISA Administration Nitroglycerin 0.4 mg 02/14/18 12:53 02/14/18 14:52 Nitrostat SL 0.4 mg Q5M PRN Administration Chest Pain Departure - Departure Time of Disposition: 15:13 Disposition: Refer to Observation Condition: Fair Clinical Impression: Chest pain, Hypertension, Dehydration Referrals: PCP,None [Primary Care Provider] - - My Orders Last 24 Hours: My Active Orders 02/14/18 12:43 EKG Documentation Completion [RC] STAT 02/14/18 14:16 Sodium Chloride 0.9% [Normal Saline] 1,000 ml IV .Bolus - Assessment/Plan Last 24 Hours: My Active Orders 02/14/18 12:43 EKG Documentation Completion [RC] STAT 02/14/18 14:16 Sodium Chloride 0.9% [Normal Saline] 1,000 ml IV .Bolus
[2018-02-14] MEDS ORDERED: Sodium Chloride 0.9% 10 ML Syringe FLUSH PRN (15:51)
[2018-02-14] MEDS ORDERED: Sodium Chloride 0.9% 2.5 ML Syringe FLUSH PRN (15:51)
[2018-02-14] MEDS: Nitroglycerin 2% Oint 1 GM UD Packet TOP SCH ×2 (16:39→23:24)
[2018-02-14] MEDS ORDERED: Temazepam 15 MG Cap PO PRN (19:01)
[2018-02-14] MEDS ORDERED: traMADol 50 MG Tab PO PRN (19:01)
--- NOTE | 2018-02-14 19:11 | PCM.HP ---
H&P History of Present Illness - General Date of Service: 02/14/18 Admit Problem/Dx: Admission Diagnosis/Problem Admission Diagnosis/Problem Atypical chest pain Source of Information: Patient, Old Records, Provider, RN - History of Present Illness Initial Comments - Free Text/Narative: She was at the oncology clinic today for a routine follow up with oncology as she has a past history of breast cancer currently quiescent. She was noted to have a blood pressure of 222/122 mm Hg and noted palpitations but no chest pain. She was seen in the ED and in hospital observation was recommended. She has a known past history of HTN treated with metroprolol 25 mg daily. head Pain Score (Numeric/FACES): 4 chest Pain Score (Numeric/FACES): 3 - Related Data Allergies/Adverse Reactions: Allergies Allergy/AdvReac Type Severity Reaction Status Date / Time No Known Allergies Allergy Verified 02/14/18 12:47 Home Medications: Home Meds Metoprolol Succinate 25 mg PO DAILY 09/07/16 [History] Calcium Carbonate [Calcium] 500 mg CHEW BID 05/16/17 [History] Cholecalciferol (Vitamin D3) [Vitamin D3] 2,000 units PO DAILY 05/16/17 [History ] Anastrozole [Arimidex] 1 mg PO DAILY 02/14/18 [History] FLUoxetine [PROzac] 60 mg PO DAILY 02/14/18 [History] Temazepam [Restoril] 15 mg PO BEDTIME PRN 02/14/18 [History] buPROPion [buPROPion XL] 150 mg PO DAILY 02/14/18 [History] traMADol HCl [Tramadol HCl] 50 mg PO Q8H PRN 02/14/18 [History] Past Medical History HEENT History: Reports: Allergic Rhinitis, Cataract, Other (See Below) Other HEENT History: wears glasses Cardiovascular History: Reports: Hypertension Respiratory History: Denies: COPD Gastrointestinal History: Reports: Other (See Below). 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 Denies: Goldonna's Disease, Diabetes , Type I, Diabetes, Type II Oncologic (Cancer) History: Reports: Breast Dermatologic History: Reports: None - Infectious Disease History Infectious Disease History: Reports: Chicken Pox, Mononucleosis, Mumps - Past Surgical History Head Surgeries/Procedures: Reports: None GI Surgical History: Reports: Appendectomy, Cholecystectomy, Colonoscopy, EGD Female Surgical History: Reports: Breast Biopsy, Breast Reconstruction, Breast Reduction, Hysterectomy Other Female Surgeries/Procedures: hx breast reduction, laparoscopy for lysis of adhesions, hysterectomy, breast lumpectomy, sentinel lymph node bx Musculoskeletal Surgical History: Reports: Carpal Tunnel, Shoulder Surgery Other Musculoskeletal Surgeries/Procedures:: hx bilat. bunionectomy, shoulder surgery (clavicle resection), surgical repair fx ankle with plate and screws, CTR, removal of screw in ankle Social & Family History - Family History Family Medical History: Noncontributory - Tobacco Use Smoking Status *Q: Current Every Day Smoker Years of Tobacco use: 20 Packs/Tins Daily: 0.6 Second Hand Smoke Exposure: Yes - Caffeine Use Caffeine Use: Reports: None Caffeine Use Comment: occassionally - Alcohol Use Days Per Week of Alcohol Use: 6 Number of Drinks Per Day: 2 Total Drinks Per Week: 12 Date of Last Drink: 02/13/18 Time of Last Drink: 15:00 - Recreational Drug Use Recreational Drug Use: No H&P Review of Systems - Review of Systems: Review Of Systems: See Below General: Denies: Fever, Chills Pulmonary: Denies: Shortness of Breath, Wheezing, Cough, Sputum, Hemoptysis Cardiovascular: Reports: Palpitations. Denies: Chest Pain Gastrointestinal: Denies: Abdominal Pain, Anorexia, Black Stool, Bloody Stool, Difficulty Swallowing, Hematemesis, Hematochezia, Melena, Nausea, Vomiting Genitourinary: Denies: Dysuria, Frequency, Burning, Hematuria, Retention Skin: Denies: Cyanosis, Jaundice Exam - Exam Exam: See Below - Vital Signs Vital Signs: Last Vital Signs Temp 99 F 02/14/18 15:30 Pulse 85 02/14/18 14:56 Resp 16 02/14/18 16:40 BP 190/105 H 02/14/18 16:40 Pulse Ox 97 02/14/18 16:40 Weight: 55.9 kg - Exam General: Alert, Oriented, Cooperative HEENT: Conjunctiva Clear, Mucosa Moist & [place]: Supple, Trachea Midline Lungs: Clear to Auscultation, Normal Respiratory Effort Cardiovascular: Regular Rate, Regular Rhythm GI/Abdominal Exam: Soft, Non-Tender (Female) Exam: Deferred Rectal (Female) Exam: Deferred Neurological: Cranial Nerves Intact, Normal Speech Neuro Extensive - Motor, Sensory, Reflexes: No: Facial palsy (L), Facial Palsy ( R), Hemeplagia (R), Hemeplagia (L) Psychiatric: Alert. No: Agitated - Patient Data Lab Results Last 24 hrs: Laboratory Results - last 24 hr 02/14/18 02/14/18 02/14/18 Range/Units 12:53 12:53 13:49 INR 0.99 Troponin I < 0.050 (0.000-0.056) ng/mL Urine Color YELLOW Urine Appearance CLEAR Urine pH 6.5 (5.0-8.0) Ur Specific [place] 1.010 (1.001-1.035) Urine Protein NEGATIVE (NEGATIVE) mg/dL Urine Glucose (UA) NEGATIVE (NEGATIVE) mg/dL Urine Ketones NEGATIVE (NEGATIVE) mg/dL Urine Occult Blood TRACE-INTACT (NEGATIVE) Urine Nitrite NEGATIVE (NEGATIVE) Urine Bilirubin NEGATIVE (NEGATIVE) Urine Urobilinogen 0.2 (<2.0) EU/dL Ur Leukocyte Esterase NEGATIVE (NEGATIVE) Urine RBC 0-1 (0-2/HPF) Urine WBC 0-1 (0-5/HPF) Ur Epithelial Cells RARE (NONE-FEW) Amorphous Sediment RARE (NEGATIVE) Urine Bacteria RARE (NEGATIVE) Problem List Initiated/Reviewed/Updated: Yes Orders Last 24hrs: Active Orders 24 hr Category Date Time Status Admission Status [Patient Status] [ADT] Stat ADT 02/14/18 15:13 Active Communication Order [RC] PER UNIT ROUTINE Care 02/14/18 15:51 Active Telemetry Monitoring [Cardiac Monitoring] [RC] Q8H Care 02/14/18 15:48 Active Regular Diet [DIET] Diet 02/14/18 Dinner Active TROPONIN I [CHEM] Q6H Lab 02/14/18 18:49 Received TROPONIN I [CHEM] Q6H Lab 02/15/18 00:50 Ordered Acetaminophen [Tylenol Extra Strength] Med 02/14/18 16:02 Active 500 mg PO Q4H PRN Anastrozole [Arimidex] Med 02/15/18 09:00 Ordered 1 mg PO DAILY Calcium Carbonate [Calcium] Med 02/14/18 21:00 Ordered 500 mg CHEW BID Cholecalciferol (Vitamin D3) [Vitamin D3] Med 02/15/18 09:00 Ordered 2,000 units PO DAILY FLUoxetine Med 02/15/18 09:00 Ordered 60 mg PO DAILY Lisinopril/Hydrochlorothiazide [Lisinopril-HCTZ 10-12.5 Med 02/14/18 21:00 Ordered MG] 1 tab PO BID Metoprolol Succinate [Toprol XL] Med 02/15/18 09:00 Active 25 mg PO DAILY Nitroglycerin [Nitro-Bid 2%] Med 02/14/18 16:15 Active 1 gm TOP Q6H Sodium Chloride 0.9% [Saline Flush] Med 02/14/18 15:51 Active 10 ml FLUSH ASDIRECTED PRN Sodium Chloride 0.9% [Saline Flush] Med 02/14/18 15:51 Active 2.5 ml FLUSH ASDIRECTED PRN Temazepam [Restoril] Med 02/14/18 19:01 Ordered 15 mg PO BEDTIME PRN buPROPion [Wellbutrin XL] Med 02/15/18 09:00 Ordered 150 mg PO DAILY traMADol [Ultram] Med 02/14/18 19:01 Ordered 50 mg PO Q8H PRN Saline Lock Insert [OM.PC] Routine Oth 02/14/18 15:51 Ordered Medication Orders Acetaminophen (Tylenol Extra Strength) 500 mg PO Q4H PRN PRN Reason: Pain Anastrozole (Arimidex) 1 mg PO DAILY [facility] Bupropion HCl (Wellbutrin Xl) 150 mg PO DAILY [facility] Cholecalciferol (Vitamin D3) 2,000 units PO DAILY RAISA Lisinopril/HCTZ (Lisinopril-Hctz 10-12.5 Mg) 1 tab PO BID [facility] Metoprolol Succinate (Toprol Xl) 25 mg PO DAILY RAISA Nitroglycerin (Nitro-Bid 2%) 1 gm TOP Q6H RAISA Last Admin: 02/14/18 16:39 Dose: 1 gm Non-Formulary Medication (Calcium Carbonate [Calcium]) 500 mg CHEW BID [facility] Non-Formulary Medication (Fluoxetine) 60 mg PO DAILY RAISA Sodium Chloride (Saline Flush) 10 ml FLUSH ASDIRECTED PRN PRN Reason: Keep Vein Open Sodium Chloride (Saline Flush) 2.5 ml FLUSH ASDIRECTED PRN PRN Reason: Keep Vein Open Temazepam (Restoril) 15 mg PO BEDTIME PRN PRN Reason: Insomnia Tramadol HCl (Ultram) 50 mg PO Q8H PRN PRN Reason: Pain Assessment/Plan Comment:: I reviewed her lab from clinic today including a Na of 129 which is near her baseline. EKG: NSR; short [place] interval see orders monitor anticipate discharge tomorrow add lisinopril/hctz. Oswald Burnett MD
[2018-02-14] MEDS: Acetaminophen 500 MG Tab PO PRN (19:34)
[2018-02-14] MEDS: Calcium Carbonate 500 MG Tab.Chew PO SCH (20:00)
[2018-02-14] MEDS: Lisinopril/Hydrochlorothiazide 10-12.5 MG Tab PO SCH (20:00)
[2018-02-14] MEDS: Ibuprofen 400 MG Tab PO PRN (22:32)
[2018-02-15] MEDS: Nitroglycerin 2% Oint 1 GM UD Packet TOP SCH ×2 (03:43→09:26)
[2018-02-15 05:54] LABS: CHLORIDE,CL 96 mmol/L (98-107); SODIUM,NA 130 mmol/L (136-145)
[2018-02-15] MEDS: Lisinopril/Hydrochlorothiazide 10-12.5 MG Tab PO SCH (08:19)
[2018-02-15] MEDS: Calcium Carbonate 500 MG Tab.Chew PO SCH (08:19)
[2018-02-15] MEDS: Ibuprofen 400 MG Tab PO PRN ×2 (08:27→12:16)
[2018-02-15] MEDS ORDERED: buPROPion 150 MG Tab.ER PO SCH (09:00)
[2018-02-15] MEDS ORDERED: Cholecalciferol (Vitamin D3) 1,000 Unit Tab PO SCH (09:00)
[2018-02-15] MEDS ORDERED: Metoprolol Succinate 25 MG Tab.ER PO SCH (09:00)
[2018-02-15] MEDS ORDERED: FLUoxetine 20 MG Cap PO SCH (09:00)
[2018-02-15] MEDS ORDERED: Patient's Own Medication 1 Each PO SCH (09:00)
[2018-02-15] MEDS: Acetaminophen 500 MG Tab PO PRN (09:36)
[2018-02-15] MEDS ORDERED: Ondansetron 4 MG Tab.DIS PO ONE (13:59)
[2018-02-15] MEDS ORDERED: metroNIDAZOLE 250 MG Tab PO SCH (14:00)
--- NOTE | 2018-02-15 14:18 | CT ---
EXAMINATION: Non contrast CT head. Coronal and sagittal reformats. HISTORY: Headache FINDINGS: No evidence of intra or extra axial hemorrhage, mass, midline shift, hydrocephalus or edema. Mild pe riventricular white matter hypodensities noted. No hypoattenuation changes in the major vascular territories to suggest acute infarct. No abnormal intracranial calcifications are detected. No evidence of substantial vascular calcificat ions. Paranasal sinuses and mastoid air cells are well aerated without substantial findings. Orbits and gl obes are symmetric. Pituitary fossa appears unremarkable. Calvarium is intact. No evidence of skull fracture. IMPRESSION: 1. No acute intracranial findings. 2. Mild small vessel ischemic changes.
--- NOTE | 2018-02-15 14:34 | PCM.DCSUM1 ---
Discharge Summary - Hospital Course Brief History: She was admitted for severe HTN. Diagnosis: Stroke: No - Discharge Data Discharge Date: 02/15/18 Discharge Disposition: Home, Self-Care 01 Condition: Fair - Patient Summary/Data Hospital Course: she had no chest pain but felt a sensation of palpitations. She was treated with topical nitroglycerin. SHe developed a headache that is still present at discharge. lisinopril/ HCTZ was added to her antihypertensive regimen. CT head was negative for acute changes. blood pressure on admission was as high as 232/122 mm Hg blood pressure at discharge is 186/106 mm Hg she has had a headache since starting wellbutrin, I advised stopping wellbutrin for now. She notes that since she took a course of antibiotics about a month ago she has had daily diarrhea. C dif antigen was positive and she is being started on flagyl po. We discussed oral vancomycin but decided on po flagyl due to cost factors. She is to follow up with Dr Talbot as she does not now have a regular physician. IMpression HTN wellbutrin headache antibiotic associated colitis Oswald Burnett MD - Discharge Plan Prescriptions/Med Rec: Lisinopril/Hydrochlorothiazide [Lisinopril-HCTZ 10-12.5 MG] 1 tab PO BID #60 tablet metroNIDAZOLE 500 mg PO TID #30 tablet Home Medications: Home Meds Metoprolol Succinate 25 mg PO DAILY 09/07/16 [History] Calcium Carbonate [Calcium] 500 mg CHEW BID 05/16/17 [History] Cholecalciferol (Vitamin D3) [Vitamin D3] 2,000 units PO DAILY 05/16/17 [History ] Anastrozole [Arimidex] 1 mg PO DAILY 02/14/18 [History] FLUoxetine [PROzac] 60 mg PO DAILY 02/14/18 [History] Temazepam [Restoril] 15 mg PO BEDTIME PRN 02/14/18 [History] traMADol HCl [Tramadol HCl] 50 mg PO Q8H PRN 02/14/18 [History] Lisinopril/Hydrochlorothiazide [Lisinopril-HCTZ 10-12.5 MG] 1 tab PO BID #60 tablet 02/15/18 [Rx] metroNIDAZOLE 500 mg PO TID #30 tablet 02/15/18 [Rx] Patient Handouts: Clostridium Difficile Infection, [id number], Nonspecific Chest Pain, [id number], Hypertension, Dyml-[id number] Forms: ED Department Discharge Referrals: Hector Talbot MD [Resident] - 02/20/18 1:30 pm (Please bring your ID card, insurance card, and all of your physical medications in to appointment) PCP,None [Primary Care Provider] - - Patient Data Vitals - Most Recent: Last Vital Signs Temp 97.1 F 02/15/18 14:00 Pulse 74 02/15/18 14:00 Resp 20 02/15/18 14:00 BP 186/106 H 02/15/18 14:00 Pulse Ox 98 02/15/18 14:00 Weight - Most Recent: 55.9 kg I&O - Last 24 hours: Intake & Output 02/14/18 02/15/18 02/15/18 22:59 06:59 14:59 Intake Total 300 1300 1140 Output Total 1650 1575 Balance 300 -350 -435 Lab Results - Last 24 hrs: Laboratory Results - last 24 hr 02/14/18 02/15/18 02/15/18 Range/Units 18:49 00:55 05:16 Sodium 130 L (136-145) mmol/L Potassium 3.7 (3.5-5.1) mmol/L Chloride 96 L (98-107) mmol/L Carbon Dioxide 26.8 (21.0-32.0) mmol/L BUN 9 (7.0-18.0) mg/dL Creatinine 0.7 (0.6-1.0) mg/dL Est Cr Clr Drug Dosing 71.96 mL/min Estimated GFR (MDRD) > 60.0 ml/min Glucose 96 (74-106) mg/dL Calcium 9.0 (8.5-10.1) mg/dL Troponin I < 0.050 < 0.050 (0.000-0.056) ng/mL KAMAR Results - Last 24 hrs: Microbiology 02/14/18 21:15 Clostridium difficile Toxin A & B - Final Stool / Feces Positive C. Diff Antigen Med Orders - Current: Current Medications Acetaminophen (Tylenol Extra Strength) 500 mg PO Q4H PRN PRN Reason: Pain Last Admin: 02/15/18 09:36 Dose: 500 mg Bupropion HCl (Wellbutrin Xl) 150 mg PO DAILY RAISA Last Admin: 02/15/18 08:17 Dose: 150 mg Calcium Carbonate/Glycine (Tums) 500 mg PO BID [facility] Last Admin: 02/15/18 08:19 Dose: 500 mg Cholecalciferol (Vitamin D3) 2,000 units PO DAILY [facility] Last Admin: 02/15/18 08:17 Dose: 2,000 units Fluoxetine HCl (Prozac) 60 mg PO DAILY [facility] Last Admin: 02/15/18 08:19 Dose: 60 mg Lisinopril/HCTZ (Lisinopril-Hctz 10-12.5 Mg) 1 tab PO BID [facility] Last Admin: 02/15/18 08:19 Dose: 1 tab Ibuprofen (Motrin) 400 mg PO Q4H PRN PRN Reason: Headache/Pain Last Admin: 02/15/18 12:16 Dose: 400 mg Metoprolol Succinate (Toprol Xl) 25 mg PO DAILY [facility] Last Admin: 02/15/18 08:19 Dose: 25 mg Metronidazole (Metronidazole) 500 mg PO TID [facility] Last Admin: 02/15/18 13:27 Dose: 500 mg Patient Own Medication (Ptom) 1 each PO DAILY [facility] Last Admin: 02/15/18 08:17 Dose: 1 each Sodium Chloride (Saline Flush) 10 ml FLUSH ASDIRECTED PRN PRN Reason: Keep Vein Open Sodium Chloride (Saline Flush) 2.5 ml FLUSH ASDIRECTED PRN PRN Reason: Keep Vein Open Temazepam (Restoril) 15 mg PO BEDTIME PRN PRN Reason: Insomnia Tramadol HCl (Ultram) 50 mg PO Q8H PRN PRN Reason: Pain Discontinued Medications Aspirin (Aspirin) 324 mg PO ONETIME ONE Stop: 02/14/18 12:44 Last Admin: 02/14/18 12:59 Dose: 324 mg Enoxaparin Sodium (Lovenox) 40 mg SUBCUT Q24H [facility] Sodium Chloride (Normal Saline) 1,000 mls @ 999 mls/hr IV STAT ONE Stop: 02/14/18 13:43 Last Admin: 02/14/18 13:00 Dose: 999 mls/hr Sodium Chloride (Normal Saline) 1,000 mls @ 999 mls/hr IV .Bolus ONE Stop: 02/14/18 15:16 Last Admin: 02/14/18 14:26 Dose: 999 mls/hr Metoprolol Tartrate (Lopressor) 5 mg IVPUSH Q5M [facility] Stop: 02/14/18 14:26 Last Admin: 02/14/18 15:26 Dose: Not Given Nitroglycerin (Nitrostat) 0.4 mg SL Q5M PRN PRN Reason: Chest Pain Last Admin: 02/14/18 14:52 Dose: 0.4 mg Nitroglycerin (Nitro-Bid 2%) 1 gm TOP Q6H [facility] Last Admin: 02/15/18 09:26 Dose: Not Given Ondansetron HCl (Zofran Odt) 4 mg PO ONETIME ONE Stop: 02/15/18 14:00 Last Admin: 02/15/18 14:03 Dose: 4 mg
[2018-02-15 14:52] VITALS: BP 171/98
[2018-02-15] MEDS ORDERED: Enoxaparin 40 MG/0.4 ML Syringe SUBCUT SCH (20:00)
== END 2018-02-15 15:14 | disposition home or self-care (01) ==
LOC: MW.ED 12:36 → MW.ICU 15:20
PROVIDERS: ADMIT Family Medicine; ATTEND Family Medicine
DX: I10 Essential (primary) hypertension (principal); G44.40 Drug-induced headache, not elsewhere classified, not intractable; T43.295A Adverse effect of other antidepressants, initial encounter; K52.1 Toxic gastroenteritis and colitis; T36.95XA Adverse effect of unspecified systemic antibiotic, initial encounter; A04.72 Enterocolitis due to Clostridium difficile, not specified as recurrent; F17.210 Nicotine dependence, cigarettes, uncomplicated; Z79.899 Other long term (current) drug therapy
CPT/HCPCS: 36415; 70450; 71045; 80048; 81001; 84484; 85610; 87324; 93005; 96361; 96374; 99285; A9270; J3490; J7040; 96376

== ENCOUNTER 2018-06-27 08:58 | Day surgery (SDC) | payer BC ==
[~2018-06-27 08:58] MED LIST changes: -Bupivacaine 25%/EPINEPHrine/PF 30 ML ONE; -Lidocaine 1% with EPINEPHrine 1:100,000 20 ML MDV INJECT ONE
--- NOTE | 2018-06-27 10:09 | PCM.PREANE ---
Preanesthetic Assessment - Anesthesia/Transfusion/Family Hx Anesthesia History: Prior Anesthesia Without Reaction Family History of Anesthesia Reaction: No Transfusion History: No Prior Transfusion(s) Intubation History: Unknown - Review of Systems General: No Symptoms Pulmonary: No Symptoms Cardiovascular: No Symptoms Gastrointestinal: No Symptoms Neurological: No Symptoms Other: Reports: None - Physical Assessment NPO Status Date: 06/26/18 NPO Status Time: 21:00 O2 Sat by Pulse Oximetry: 98 Respiratory Rate: 15 Vital Signs: Last Vital Signs Temp 36.6 C 06/27/18 09:40 Pulse 97 06/27/18 09:40 Resp 15 06/27/18 09:40 BP 131/75 06/27/18 09:40 Pulse Ox 98 06/27/18 09:40 Height: 1.63 m Weight: 56.699 kg ASA Class: 3 Mental Status: Alert & Oriented x3 Airway Class: Mallampati = 2 Dentition: Reports: Normal Dentition Thyro-Mental Finger Breadths: 3 Mouth Opening Finger Breadths: 3 ROM/Head Extension: Full Lungs: Clear to Auscultation, Normal Respiratory Effort Cardiovascular: Regular Rate, Regular Rhythm - Allergies Allergies/Adverse Reactions: Allergies Allergy/AdvReac Type Severity Reaction Status Date / Time No Known Allergies Allergy Verified 06/22/18 08:29 - Blood Blood Available: No - Anesthesia Plan Pre-Op Medication Ordered: None - Acknowledgements Anesthesia Type Planned: General Anesthesia Pt an Appropriate Candidate for the Planned Anesthesia: Yes Alternatives and Risks of Anesthesia Discussed w Pt/Guardian: Yes Pt/Guardian Understands and Agrees with Anesthesia Plan: Yes PreAnesthesia Questionnaire HEENT History: Reports: Allergic Rhinitis, Other (See Below) Other HEENT History: wears glasses Cardiovascular History: Reports: High Cholesterol, Hypertension Gastrointestinal History: Reports: Other (See Below) (chronic gastriitis, dysphagia) Genitourinary History: Reports: None 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 Denies: CVA Psychiatric History: Reports: Anxiety, Depression, Other (See Below) ( claustrophobia) Endocrine/Metabolic History: Reports: None Oncologic (Cancer) History: Reports: Breast Dermatologic History: Reports: None - Infectious Disease History Infectious Disease History: Reports: Chicken Pox, Measles, Mumps - Past Surgical History Head Surgeries/Procedures: Reports: None HEENT Surgical History: Reports: Oral Surgery GI Surgical History: Reports: Appendectomy, Cholecystectomy, Colonoscopy, EGD Female Surgical History: Reports: Breast Biopsy, Breast Reconstruction, Breast Reduction, Hysterectomy Other Female Surgeries/Procedures: hx breast reduction, laparoscopy for lysis of adhesions, hysterectomy, breast lumpectomy, sentinel lymph node bx Musculoskeletal Surgical History: Reports: Carpal Tunnel, Shoulder Surgery Other Musculoskeletal Surgeries/Procedures:: hx bilat. bunionectomy, shoulder surgery (clavicle resection), surgical repair fx ankle with plate and screws, CTR, removal of screw in ankle - SUBSTANCE USE Smoking Status *Q: Current Every Day Smoker Tobacco Use Within Last Twelve Months: Cigarettes Recreational Drug Use History: No - HOME MEDS Home Medications: Home Meds Calcium Carbonate [Calcium] 500 mg CHEW BID 05/16/17 [History] Cholecalciferol (Vitamin D3) [Vitamin D3] 2,000 units PO DAILY 05/16/17 [History ] Anastrozole [Arimidex] 1 mg PO DAILY 05/17/18 [History] Aspirin 81 mg PO DAILY 05/17/18 [History] Escitalopram [Lexapro] 10 mg PO DAILY 05/17/18 [History] Lisinopril/Hydrochlorothiazide [Lisinopril-Hctz 20-12.5 mg Tab] 1 tab PO DAILY 05/17/18 [History] Gabapentin [Neurontin] 1 tab PO TID 06/22/18 [History] Temazepam 15 mg PO BEDTIME PRN 06/22/18 [History] hydrOXYzine pamoate [Hydroxyzine Pamoate] 1 tab PO ASDIRECTED PRN 06/22/18 [ History] - CURRENT (IN HOUSE) MEDS Current Meds: Current Medications Hydrocodone Bitart/Acetaminophen ([place] 325-5 Mg) 1 tab PO Q4H PRN PRN Reason: Pain Lactated Ringer's (Ringers, Lactated) 1,000 mls @ 125 mls/hr IV ASDIRECTED RAISA Last Admin: 06/27/18 09:52 Dose: 125 mls/hr Discontinued Medications Bupivacaine HCl/Epinephrine Bitart (Marc[place] 0.25%/Epinephrine 1:200,000) 30 ml INJECT ONETIME ONE Stop: 06/27/18 08:01 Cefazolin Sodium/Dextrose 2 gm (/ Premix) 50 mls @ 100 mls/hr IV ONETIME ONE Stop: 06/27/18 08:29
[2018-06-27] MEDS ORDERED: Atropine 1 MG/ML SDV IVPUSH PRN ×2 (10:44)
[2018-06-27] MEDS ORDERED: 50% Dextrose in Water 50 ML Syringe IVPUSH PRN (10:44)
[2018-06-27] MEDS ORDERED: Albuterol 0.083% 2.5 MG/3 ML Neb Soln NEB PRN (10:44)
[2018-06-27] MEDS ORDERED: fentaNYL 100 MCG/2 ML SDV IVPUSH PRN (10:44)
[2018-06-27] MEDS ORDERED: EPINEPHrine 1 MG/ML 30 ML MDV IVPUSH ONE (10:44)
[2018-06-27] MEDS ORDERED: Naloxone 0.4 MG/ML Syringe IVPUSH PRN (10:44)
[2018-06-27] MEDS ORDERED: Ondansetron 4 MG/2 ML SDV ONE (10:52)
[2018-06-27] MEDS ORDERED: Neostigmine Methylsulfate 1 MG/ML 5 ML Syringe ONE (10:52)
[2018-06-27] MEDS ORDERED: Glycopyrrolate 0.2 MG/ML SDV ONE (10:52)
[2018-06-27] MEDS ORDERED: Lidocaine 2% 5 ML SDV ONE (10:52)
[2018-06-27] MEDS ORDERED: Rocuronium 10 MG/ML 10 ML Syringe ONE (10:52)
[2018-06-27] MEDS ORDERED: Midazolam 1 MG/ML 2 ML SDV ONE (10:53)
[2018-06-27] MEDS ORDERED: Propofol 200 MG/20 ML SDV ONE (10:53)
[2018-06-27] MEDS ORDERED: fentaNYL 250 MCG/5 ML SDV ONE (10:53)
[2018-06-27] MEDS ORDERED: Bupivacaine 25%/EPINEPHrine/PF 30 ML ONE (12:09)
[2018-06-27] MEDS ORDERED: EPINEPHrine 1 MG/ML SDV ONE ×2 (12:09→12:17)
[2018-06-27] MEDS ORDERED: Lidocaine 1% 50 ML MDV ONE (12:17)
[2018-06-27] MEDS ORDERED: Sodium Chloride 0.9% 20 ML ONE (12:37)
[2018-06-27] MEDS ORDERED: ceFAZolin 1 GM Vial ONE (12:37)
[2018-06-27] MEDS ORDERED: HYDROmorphone 2 MG/ML Syringe ONE (12:59)
[2018-06-27] MEDS ORDERED: fentaNYL 100 MCG/2 ML SDV ONE (13:27)
--- NOTE | 2018-06-27 14:49 | PCM.POSTAN ---
POST ANESTHESIA ASSESSMENT - MENTAL STATUS Mental Status: Alert, Oriented - RESPIRATORY Respiratory Status: Respiratory Rate WNL, Airway Patent, O2 Saturation Stable - CARDIOVASCULAR CV Status: Pulse Rate WNL, Blood Pressure Stable - GASTROINTESTINAL GI Status: No Symptoms - PAIN Pain Score: 2 - POST OP HYDRATION Hydration Status: Adequate & Stable - OBSERVATIONS Free Text/Narrative:: no anesthesia problems
--- NOTE | 2018-06-27 15:02 | PCM.OPNOTE ---
- General Post-Op/Procedure Note Date of Surgery/Procedure: 06/27/18 Operative Procedure(s): right breast reconstruction revision with scar release and fat grafting and left breast lift with fat grafting for symmetry. Pre Op Diagnosis: asymmetry between [place] and reconstructed breast, right breast radiation changes Post-Op Diagnosis: Same Anesthesia Technique: General ET Tube, Local Primary Surgeon: Karen Rojo Pattern Scratcher: Krystle Yates Reason Pattern Scratcher Was Necessary: retraction, prepping draping and closure assistance Complications: None Condition: Good Free Text/Narrative:: Intake & Output 06/26/18 06/27/18 06/27/18 23:59 07:59 15:59 Intake Total 1200 Balance 1200
--- NOTE | 2018-06-27 15:55 | OR ---
SURGEON: DOROTHY BERMAN MD DATE OF PROCEDURE: 06/27/2018 PREOPERATIVE DIAGNOSES: 1. Asymmetry between [place] and reconstructed breast 2. right breast radiation changes with significant tethering, scarring, and pain. POSTOPERATIVE DIAGNOSES: Asymmetry between [place] and reconstructed breast, and right breast radiation changes with significant tethering, scarring, and pain. PROCEDURES: Right breast reconstruction revision with scar release and fat grafting, and left breast lift with fat grafting for symmetry. PATENT PROSECUTION PARALEGAL: IBIS Fan. REASON FOR AND ROLE OF PATENT PROSECUTION PARALEGAL: Retraction, prepping, draping, positioning and closure assistance. ANESTHESIA: General ET tube with local. INDICATIONS: Ms. Del Rio is a 63-year-old female who has significant issues with right breast radiation changes. She has tethering of the skin and some scar forming underneath the breast itself. She also has some significant fat necrosis, scar tissue in the breast itself. Mammography was reviewed with her. We discussed risks and benefits including revision of the reconstructed breast on the right and attempting better symmetry on the left. Risks were including, but not limited to, bleeding, infection, damage to underlying or overlying structures, possible need for future interventions, possible scarring. PROCEDURE IN DETAIL: After informed consent was obtained and placed on the chart, the patient was brought to the operating theater in supine position. After adequate general anesthesia was obtained, the area was prepped and draped, and time-out was completed to confirm side and site. Tumescent was infiltrated into the abdominal area and right breast and allowed to set for appropriate time frame. The fat graft was then harvested from the abdominal area through small stab incisions. Once adequately harvested, the incisions were closed with 5- 0 chromic stitch in horizontal mattress fashion. The fat was then isolated and allowed to sit using the PAL microaire machine. Attention was then paid to the left breast and an appropriate amount of tension was redraped and allowed for a revision of left breast with a repeat lift for more appropriate tension in left lateral positioning with more upper pole fullness to match the right side. Once this was completed, the excess skin here was removed and the incision was then closed using a deep 3-0 Monocryl and a running 4-0 subcuticular for the skin using Stratafix. The wound was dressed with Steri- Strips. Attention was then paid to the right breast. An 18-gauge needle was used to free the tethered skin from the underlying breast and scar tissue here. The significant amount of work was done in segmental fashion for this needle aponeurotomy to allow the place to the fat graft and also decreased tethering of the skin and tissues. The liposuction cannula was then used in the breast tissue itself to break up some of the scar tissue here and allow for softening of this significant contraction. Once completed, attention was paid to fat grafting. Attention was then paid to fat grafting of the left breast using 120 mL of fat, mostly in the upper and medial pole to match the fullness on the right side. This was done in small aliquots to allow the maximum survival of fat graft. The patient tolerated this well, and all stab incisions were closed with a 5-0 chromic stitch and Steri-Strips. Attention was the paid to the right breast. Over 60 mL were placed in the right breast to allow decreased adherence between the skin and the underlying breast tissue. Additional graft was focalized at the right inframammary fold and the medial inframammary fold to prevent additional tethering here. Fat grafting was also done in the lateral aspect of the axilla and breast to improve her tethering, skin changes and pain here as well. The patient was placed in a compression garment on the abdomen as well as compression bra. All counts and needles were correct at the end of the case. FOLLOWUP INSTRUCTIONS: The patient will see us in one week, sooner if any problems, questions, or concerns. SHAHANA / ALTHEA /[id number] ED
[2018-06-27 16:21] VITALS: BP 110/74
--- NOTE | 2018-06-27 16:38 | PCM48HPAN ---
Post Anesthesia Note - EVALUATION WITHIN 48HRS OF ANESTHETIC Vital Signs in Normal Range: Yes Patient Participated in Evaluation: Yes Respiratory Function Stable: Yes Airway Patent: Yes Cardiovascular Function Stable: Yes Hydration Status Stable: Yes Pain Control Satisfactory: Yes Nausea and Vomiting Control Satisfactory: Yes Mental Status Recovered: Yes Resp Rate: 13
== END 2018-06-27 16:55 | disposition home or self-care (01) ==
LOC: MW.SDS 08:58
PROVIDERS: ATTEND Plastic Surgery
DX: N65.1 Disproportion of reconstructed breast (principal); L59.8 Other specified disorders of the skin and subcutaneous tissue related to radiation; Z92.3 Personal history of irradiation; I10 Essential (primary) hypertension; F17.210 Nicotine dependence, cigarettes, uncomplicated; E78.5 Hyperlipidemia, unspecified; E78.00 Pure hypercholesterolemia, unspecified; F41.9 Anxiety disorder, unspecified; F32.9 Major depressive disorder, single episode, unspecified; Z79.82 Long term (current) use of aspirin; Z79.899 Other long term (current) drug therapy
CPT/HCPCS: 19316; 19380; A9270; J0690; J1170; J2001; J2250; J2405; J2704; J3010; J3490; J7120; J0171

== ENCOUNTER 2018-08-08 09:48 | Day surgery (SDC) | payer BC ==
[~2018-08-08 09:48] MED LIST changes: -Bupivacaine 0.25%/EPINEPHrine 1:200,000 10 ML SDV INJECT ONE; +ceFAZolin 1 GM in Premix Bag 1 BAG IV SCH; -ceFAZolin 2 GM in Premix Bag 1 BAG IV ONE
[2018-08-08] MEDS ORDERED: fentaNYL 100 MCG/2 ML SDV ONE (10:10)
[2018-08-08] MEDS ORDERED: Propofol 200 MG/20 ML SDV ONE (10:10)
[2018-08-08] MEDS ORDERED: Midazolam 1 MG/ML 2 ML SDV ONE (10:11)
--- NOTE | 2018-08-08 10:29 | PCM.PREANE ---
Preanesthetic Assessment - Anesthesia/Transfusion/Family Hx Anesthesia History: Prior Anesthesia Without Reaction Family History of Anesthesia Reaction: No Transfusion History: No Prior Transfusion(s) Intubation History: Unknown - Review of Systems General: No Symptoms Pulmonary: No Symptoms Cardiovascular: No Symptoms Gastrointestinal: No Symptoms Neurological: No Symptoms Other: Reports: None - Physical Assessment NPO Status Date: 08/07/18 Height: 5 ft 4 in Weight: 56.245 kg ASA Class: 2 Mental Status: Alert & Oriented x3 Airway Class: Mallampati = 1 Dentition: Reports: Normal Dentition ROM/Head Extension: Full Lungs: Clear to Auscultation, Normal Respiratory Effort Cardiovascular: Regular Rate, Regular Rhythm - Allergies Allergies/Adverse Reactions: Allergies Allergy/AdvReac Type Severity Reaction Status Date / Time No Known Allergies Allergy Verified 08/02/18 08:24 - Blood Blood Available: No - Anesthesia Plan Pre-Op Medication Ordered: None - Acknowledgements Anesthesia Type Planned: General Anesthesia Pt an Appropriate Candidate for the Planned Anesthesia: Yes Alternatives and Risks of Anesthesia Discussed w Pt/Guardian: Yes Pt/Guardian Understands and Agrees with Anesthesia Plan: Yes Additional Comments: PMH: anxiety disorder, htn, hx of breast cancer, smoker PLAN: GA-LMA PreAnesthesia Questionnaire HEENT History: Reports: Allergic Rhinitis, Other (See Below) Other HEENT History: wears glasses Cardiovascular History: Reports: High Cholesterol, Hypertension Respiratory History: Reports: None Gastrointestinal History: Reports: Other (See Below) Genitourinary History: Reports: None 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: Musculoskeletal History: Reports: Arthritis, Fracture Neurological History: Reports: Other (See Below) Psychiatric History: Reports: Anxiety, Depression, Other (See Below) Endocrine/Metabolic History: Reports: None Hematologic History: Reports: None Immunologic History: Reports: None Oncologic (Cancer) History: Reports: Breast Dermatologic History: Reports: None - Infectious Disease History Infectious Disease History: Reports: Chicken Pox, Measles, Mumps - Past Surgical History Head Surgeries/Procedures: Reports: None HEENT Surgical History: Reports: Oral Surgery GI Surgical History: Reports: Appendectomy, Cholecystectomy, Colonoscopy, EGD Female Surgical History: Reports: Breast Biopsy, Breast Reconstruction, Breast Reduction, Hysterectomy Other Female Surgeries/Procedures: hx breast reduction, laparoscopy for lysis of adhesions, hysterectomy, breast lumpectomy, sentinel lymph node bx Musculoskeletal Surgical History: Reports: Carpal Tunnel, Shoulder Surgery Other Musculoskeletal Surgeries/Procedures:: hx bilat. bunionectomy, shoulder surgery (clavicle resection), surgical repair fx ankle with plate and screws, CTR, removal of screw in ankle Oncologic Surgical History: Reports: None - SUBSTANCE USE Smoking Status *Q: Light Tobacco Smoker Tobacco Use Within Last Twelve Months: Cigarettes Recreational Drug Use History: No - HOME MEDS Home Medications: Home Meds Calcium Carbonate [Calcium] 500 mg CHEW BID 05/16/17 [History] Cholecalciferol (Vitamin D3) [Vitamin D3] 2,000 units PO DAILY 05/16/17 [History ] Anastrozole [Arimidex] 1 mg PO DAILY 05/17/18 [History] Aspirin 81 mg PO DAILY 05/17/18 [History] Escitalopram [Lexapro] 10 mg PO DAILY 05/17/18 [History] Lisinopril/Hydrochlorothiazide [Lisinopril-Hctz 20-12.5 mg Tab] 1 tab PO DAILY 05/17/18 [History] Gabapentin [Neurontin] 1 tab PO TID 06/22/18 [History] Temazepam 15 mg PO BEDTIME PRN 06/22/18 [History] hydrOXYzine pamoate [Hydroxyzine Pamoate] 1 tab PO ASDIRECTED PRN 06/22/18 [ History] Acetaminophen/HYDROcodone [[place] 325-5 MG] 1 tab PO Q4H PRN #40 tablet 06/27/18 [Rx] - CURRENT (IN HOUSE) MEDS Current Meds: Current Medications Hydrocodone Bitart/Acetaminophen ([place] 325-5 Mg) 1 - 2 tab PO Q4H PRN PRN Reason: Pain Cefazolin Sodium/Dextrose 1 gm (/ Premix) 50 mls @ 100 mls/hr IV ONCALL RAISA Lactated Ringer's (Ringers, Lactated) 1,000 mls @ 100 mls/hr IV ASDIRECTED RAISA Discontinued Medications Fentanyl (Sublimaze) Confirm Administered Dose 100 mcg .ROUTE .STK-MED ONE Stop: 08/08/18 10:11 Lidocaine HCl (Xylocaine-Mpf 1%) Confirm Administered Dose 5 mls @ as directed .ROUTE .STK-MED ONE Stop: 08/08/18 10:13 Midazolam HCl (Versed 1 Mg/Ml) Confirm Administered Dose 2 mg .ROUTE .STK-MED ONE Stop: 08/08/18 10:12 Propofol (Diprivan 20 Ml) Confirm Administered Dose 200 mg .ROUTE .STK-MED ONE Stop: 08/08/18 10:11
[2018-08-08] MEDS ORDERED: Ondansetron 4 MG/2 ML SDV IVPUSH PRN (11:23)
[2018-08-08] MEDS ORDERED: fentaNYL 100 MCG/2 ML SDV IVPUSH PRN (11:23)
[2018-08-08] MEDS ORDERED: Bupivacaine 0.5% 10 ML SDV ONE (11:33)
[2018-08-08] MEDS ORDERED: Lidocaine 1% 20 ML MDV ONE (11:35)
[2018-08-08] MEDS ORDERED: Ketorolac 30 MG/ML SDV ONE (12:08)
[2018-08-08] MEDS ORDERED: Acetaminophen/Codeine 300-30 MG Tab PO PRN (12:11)
--- NOTE | 2018-08-08 12:20 | PCM.OPNOTE ---
- General Post-Op/Procedure Note Date of Surgery/Procedure: 08/08/18 Operative Procedure(s): Excision mass left foot Post-Op Diagnosis: L foot mass Anesthesia Technique: Local, Moderate Sedation Primary Surgeon: Jolly Reagan Apiarist: Kristy Hopkins in mLs: 5 Condition: Good Free Text/Narrative:: tt=0 min #[id number]
--- NOTE | 2018-08-08 12:32 | PCM48HPAN ---
Post Anesthesia Note - EVALUATION WITHIN 48HRS OF ANESTHETIC Vital Signs in Normal Range: Yes Patient Participated in Evaluation: Yes Respiratory Function Stable: Yes Airway Patent: Yes Cardiovascular Function Stable: Yes Hydration Status Stable: Yes Pain Control Satisfactory: Yes Nausea and Vomiting Control Satisfactory: Yes Mental Status Recovered: Yes Resp Rate: 16
--- NOTE | 2018-08-08 12:32 | PCM.POSTAN ---
POST ANESTHESIA ASSESSMENT - MENTAL STATUS Mental Status: Alert, Oriented - RESPIRATORY Respiratory Status: Respiratory Rate WNL, Airway Patent, O2 Saturation Stable - CARDIOVASCULAR CV Status: Pulse Rate WNL, Blood Pressure Stable - GASTROINTESTINAL GI Status: No Symptoms - POST OP HYDRATION Hydration Status: Adequate & Stable
[2018-08-08 12:51] VITALS: BP 144/86
--- NOTE | 2018-08-08 13:00 | OR ---
SURGEON: Jolly Reagan MD DATE OF PROCEDURE: 08/08/2018 PREOPERATIVE DIAGNOSIS: Left foot mass. POSTOPERATIVE DIAGNOSIS: Left foot mass. PROCEDURE: Excision of left foot mass. AUDIT TECH: Kristy Hopkins PA-C. ANESTHESIA: General, local with sedation. ESTIMATED BLOOD LOSS: 5 mL. TOURNIQUET TIME: 0 minutes. COMPLICATIONS: None. DVT PROPHYLAXIS: Not indicated. IMPLANTS USED: None. BRIEF HISTORY: The patient is a 63-year-old female who has had complaint of a mass along the anterolateral aspect of her foot. She did not recall specific injury. She has not had any significant change in the size of the mass. On her last visit, I did recommend excision of the mass. The risks and goals of procedure were discussed with the patient and were documented preoperatively. She agreed to proceed. DESCRIPTION OF PROCEDURE: The patient was properly identified and brought to the operating room. She was placed on the operating table in supine position. Sedation was administered. The left lower extremity was then prepped in standard fashion using ChloraPrep solution. It was then sterilely draped. A time-out was performed to ensure correct site and procedure. Preoperative antibiotics were given. The surgical site had been marked preoperatively. A mixture of 0.5% Marcaine and 1% lidocaine were then administered over the site of the anticipated incision. A 15 blade scalpel was used to incise the skin. The subcutaneous tissues were gently dissected. There was a sebaceous material present within the cyst, which was excised and sent for pathologic evaluation. The cyst was easily removed with no significant trauma to the surrounding tissue planes. The wound was then copiously irrigated with saline solution. The skin was closed with 4-0 nylon. An Aquacel dressing was placed over the wound. She was awakened from her anesthetic and transferred back to the operating room cart. She was brought to recovery room in stable condition. All needle and sponge counts were correct. HEIKE / ALTHEA /[id number]
== END 2018-08-08 12:39 | disposition home or self-care (01) ==
LOC: MW.SDS 09:48
PROVIDERS: ATTEND Orthopaedic Surgery
DX: L72.0 Epidermal cyst (principal); I10 Essential (primary) hypertension; E78.00 Pure hypercholesterolemia, unspecified; F32.9 Major depressive disorder, single episode, unspecified; F41.9 Anxiety disorder, unspecified; F17.210 Nicotine dependence, cigarettes, uncomplicated; M19.079 Primary osteoarthritis, unspecified ankle and foot; Z79.82 Long term (current) use of aspirin; Z79.899 Other long term (current) drug therapy
CPT/HCPCS: 11420; 88304; J0131; J0690; J1885; J2001; J2250; J2704; J3010; J3490; J7120; 00400

== ENCOUNTER 2018-09-26 09:42 | Observation (INO) | payer BC ==
[~2018-09-26 09:42] MED LIST changes: -Acetaminophen/HYDROcodone 325-5 MG Tab PO PRN; +Bupivacaine 0.25%/EPINEPHrine 1:200,000 10 ML SDV INJECT ONE; +Bupivacaine 25%/EPINEPHrine/PF 30 ML ONE; +Bupivacaine Liposome 1.3% 20 ML SDV INFILT ONE; +EPINEPHrine 1 MG/ML SDV ONE; +Midazolam 1 MG/ML 2 ML SDV ONE; +Octyl 2-Cyanoacrylate 1 Tube ONE; +Ondansetron 4 MG Tab.DIS PO PRN; +Ondansetron 4 MG/2 ML SDV IVPUSH PRN; +Ondansetron 4 MG/2 ML SDV ONE; +Propofol 200 MG/20 ML SDV ONE; +Rocuronium 100 MG/10 ML Syringe ONE; -ceFAZolin 1 GM in Premix Bag 1 BAG IV SCH; +ceFAZolin 2 GM in Premix Bag 1 BAG IV ONE; +diphenhydrAMINE 25 MG Cap PO PRN; +fentaNYL 250 MCG/5 ML SDV ONE
--- NOTE | 2018-09-26 10:42 | PCM.PREANE ---
Preanesthetic Assessment - Anesthesia/Transfusion/Family Hx Anesthesia History: Prior Anesthesia Without Reaction Family History of Anesthesia Reaction: No Transfusion History: No Prior Transfusion(s) Intubation History: Unknown - Review of Systems General: No Symptoms Pulmonary: No Symptoms Cardiovascular: No Symptoms Gastrointestinal: No Symptoms Neurological: No Symptoms Other: Reports: None - Physical Assessment O2 Sat by Pulse Oximetry: 97 Respiratory Rate: 16 Vital Signs: Last Vital Signs Temp 36.4 C 09/26/18 09:50 Pulse 92 09/26/18 09:50 Resp 16 09/26/18 09:50 BP 114/84 09/26/18 09:50 Pulse Ox 97 09/26/18 09:50 Height: 1.63 m Weight: 56.699 kg ASA Class: 2 Mental Status: Alert & Oriented x3 Airway Class: Mallampati = 2 Dentition: Reports: [place](s) (muliple upper front) Thyro-Mental Finger Breadths: 3 Mouth Opening Finger Breadths: 2 ROM/Head Extension: Full Lungs: Clear to Auscultation, Normal Respiratory Effort Cardiovascular: Regular Rate, Regular Rhythm - Allergies Allergies/Adverse Reactions: Allergies Allergy/AdvReac Type Severity Reaction Status Date / Time No Known Allergies Allergy Verified 09/24/18 07:42 - Blood Blood Available: No - Anesthesia Plan Pre-Op Medication Ordered: None - Acknowledgements Anesthesia Type Planned: General Anesthesia Pt an Appropriate Candidate for the Planned Anesthesia: Yes Alternatives and Risks of Anesthesia Discussed w Pt/Guardian: Yes Pt/Guardian Understands and Agrees with Anesthesia Plan: Yes PreAnesthesia Questionnaire HEENT History: Reports: Allergic Rhinitis, Other (See Below) Other HEENT History: wears glasses Cardiovascular History: Reports: High Cholesterol, Hypertension Respiratory History: Reports: None Gastrointestinal History: Reports: Other (See Below) (h/o elevated liver enzymes ) Genitourinary History: Reports: 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: Musculoskeletal History: Reports: Arthritis, Fracture Neurological History: Reports: None, Other (See Below) (claustrophobia) Psychiatric History: Reports: Anxiety, Depression Endocrine/Metabolic History: Reports: None Hematologic History: Reports: None Immunologic History: Reports: None Oncologic (Cancer) History: Reports: Breast Dermatologic History: Reports: None - Infectious Disease History Infectious Disease History: Reports: Chicken Pox, Measles, Mumps - Past Surgical History Head Surgeries/Procedures: Reports: None HEENT Surgical History: Reports: Oral Surgery GI Surgical History: Reports: Appendectomy, Cholecystectomy, Colonoscopy, EGD Female Surgical History: Reports: Breast Biopsy, Breast Reconstruction, Breast Reduction, Hysterectomy Other Female Surgeries/Procedures: hx breast reduction, laparoscopy for lysis of adhesions, hysterectomy, breast lumpectomy, sentinel lymph node bx Endocrine Surgical History: Reports: None Neurological Surgical History: Reports: None Musculoskeletal Surgical History: Reports: Carpal Tunnel, Shoulder Surgery Other Musculoskeletal Surgeries/Procedures:: hx bilat. bunionectomy, shoulder surgery (clavicle resection), surgical repair fx ankle with plate and screws, CTR, removal of screw in ankle, cyst removed from left ankle Oncologic Surgical History: Reports: None - SUBSTANCE USE Smoking Status *Q: Light Tobacco Smoker (one pack per week) Tobacco Use Within Last Twelve Months: Cigarettes Recreational Drug Use History: No - HOME MEDS Home Medications: Home Meds Calcium Carbonate [Calcium] 500 mg CHEW BID 05/16/17 [History] Cholecalciferol (Vitamin D3) [Vitamin D3] 2,000 units PO DAILY 05/16/17 [History ] Anastrozole [Arimidex] 1 mg PO DAILY 05/17/18 [History] Aspirin 81 mg PO DAILY 05/17/18 [History] Escitalopram [Lexapro] 10 mg PO DAILY 05/17/18 [History] Lisinopril/Hydrochlorothiazide [Lisinopril-Hctz 20-12.5 mg Tab] 1 tab PO DAILY 05/17/18 [History] Temazepam 15 mg PO BEDTIME PRN 06/22/18 [History] LORazepam 1 mg PO ASDIRECTED PRN 09/24/18 [History] - CURRENT (IN HOUSE) MEDS Current Meds: Current Medications Hydrocodone Bitart/Acetaminophen ([place] 325-5 Mg) 1 tab PO Q4H PRN PRN Reason: Pain Diphenhydramine HCl (Benadryl) 25 mg PO Q6H PRN PRN Reason: Itching Lactated Ringer's (Ringers, Lactated) 1,000 mls @ 125 mls/hr IV ASDIRECTED RAISA Ibuprofen (Motrin) 600 mg PO Q6H PRN PRN Reason: Pain (mild 1-3) Morphine Sulfate (Morphine) 1 mg IVPUSH Q2H PRN PRN Reason: Pain (severe 7-10) Ondansetron HCl (Zofran Odt) 4 mg PO Q6H PRN PRN Reason: Nausea/Vomiting Ondansetron HCl (Zofran) 4 mg IVPUSH Q6H PRN PRN Reason: Nausea/Vomiting Discontinued Medications Bupivacaine HCl/Epinephrine Bitart ([place] 0.25%/Epinephrine 1:200,000) 30 ml INJECT ONETIME ONE Stop: 09/26/18 08:01 Bupivacaine Liposome (Exparel) 20 ml INFILT ONETIME ONE Stop: 09/26/18 08:15 Epinephrine HCl (Adrenalin) Confirm Administered Dose 1 mg .ROUTE .STK-MED ONE Stop: 09/26/18 09:17 Fentanyl (Sublimaze) Confirm Administered Dose 250 mcg .ROUTE .STK-MED ONE Stop: 09/26/18 08:28 Cefazolin Sodium/Dextrose 2 gm (/ Premix) 50 mls @ 100 mls/hr IV ONETIME ONE Stop: 09/26/18 08:29 Bupivacaine HCl/Epinephrine Bitart (Sensorc Mpf 0.25%-Epi 1:[id number]) Confirm Administered Dose 30 mls @ as directed .ROUTE .STK-MED ONE Stop: 09/26/18 07:34 Lidocaine HCl (Xylocaine-Mpf 1%) Confirm Administered Dose 5 mls @ as directed .ROUTE .STK-MED ONE Stop: 09/26/18 08:28 Midazolam HCl (Versed 1 Mg/Ml) Confirm Administered Dose 2 mg .ROUTE .STK-MED ONE Stop: 09/26/18 08:28 Octyl Cyanoacrylate (Dermabond Advance) Confirm Administered Dose 1 applic .ROUTE .STK-MED ONE Stop: 09/26/18 07:34 Ondansetron HCl (Zofran) Confirm Administered Dose 4 mg .ROUTE .STK-MED ONE Stop: 09/26/18 08:28 Propofol (Diprivan 20 Ml) Confirm Administered Dose 200 mg .ROUTE .STK-MED ONE Stop: 09/26/18 08:28 Rocuronium Papillion (Zemuron) Confirm Administered Dose 100 mg .ROUTE .STK-MED ONE Stop: 09/26/18 08:28
[2018-09-26] MEDS ORDERED: ceFAZolin/Dextrose,Iso-Osmotic 2 GM/50 ML Duplex Bag IV ONE (11:43)
[2018-09-26] MEDS ORDERED: Scopolamine 1.5 MG Transdermal Patch ONE (11:48)
[2018-09-26] MEDS ORDERED: Scopolamine 1.5 MG Transdermal Patch TOP ONE (11:51)
[2018-09-26] MEDS ORDERED: Ondansetron 4 MG/2 ML SDV ONE (12:36)
[2018-09-26] MEDS ORDERED: Phenylephrine/Normal Saline 100 MCG/ML 10 ML Syringe ONE (12:40)
[2018-09-26] MEDS ORDERED: HYDROmorphone 2 MG/ML Syringe ONE (12:54)
[2018-09-26] MEDS ORDERED: Metoclopramide 10 MG/2 ML SDV ONE (13:07)
[2018-09-26] MEDS ORDERED: Propofol 200 MG/20 ML SDV ONE (13:20)
[2018-09-26] MEDS ORDERED: fentaNYL 100 MCG/2 ML SDV ONE ×2 (14:39→15:44)
[2018-09-26] MEDS ORDERED: Naloxone 0.4 MG/ML Syringe IVPUSH PRN (15:41)
[2018-09-26] MEDS ORDERED: Atropine 0.1 MG/ML 10 ML Syringe IVPUSH PRN ×2 (15:41)
[2018-09-26] MEDS ORDERED: EPINEPHrine 1:10,000 1 MG/10 ML Syringe IVPUSH PRN (15:41)
[2018-09-26] MEDS ORDERED: 50% Dextrose in Water 50 ML Syringe IVPUSH PRN (15:41)
[2018-09-26] MEDS ORDERED: Albuterol 0.083% 2.5 MG/3 ML Neb Soln NEB PRN (15:41)
[2018-09-26] MEDS: fentaNYL 100 MCG/2 ML SDV IVPUSH PRN ×4 (15:47→16:19)
[2018-09-26] MEDS ORDERED: Labetalol 100 MG/20 ML MDV IVPUSH ONE (16:16)
[2018-09-26] MEDS: Morphine 2 MG/ML Syringe IVPUSH PRN (19:38)
[2018-09-26] MEDS: Acetaminophen/HYDROcodone 325-5 MG Tab PO PRN (21:59)
[2018-09-27] MEDS: Acetaminophen/HYDROcodone 325-5 MG Tab PO PRN ×5 (03:09→21:30)
--- NOTE | 2018-09-27 09:20 | PCM.OPNOTE ---
- General Post-Op/Procedure Note Date of Surgery/Procedure: 09/26/18 Operative Procedure(s): right breast reconstruction with latissimus flap Pre Op Diagnosis: right breast radiation changes and scar tissue s/p lumpectomy and radiation for breast cancer Post-Op Diagnosis: Same Anesthesia Technique: General ET Tube, Local Primary Surgeon: Karen Rojo Detail Technician: Krystle Yates EBL in mLs: 50 Surgical Drain/Tube Type: Frankie Srivastava Drain (x2) Complications: None Condition: Good Free Text/Narrative:: Intake & Output 09/26/18 09/27/18 09/27/18 23:59 07:59 15:59 Intake Total 2250 Output Total 160 700 Balance -160 1550
[2018-09-27] MEDS: Ibuprofen 600 MG Tab PO PRN ×2 (10:07→15:53)
[2018-09-27] MEDS ORDERED: Temazepam 15 MG Cap PO PRN (10:52)
[2018-09-27] MEDS ORDERED: LORazepam 1 MG Tab PO PRN (10:52)
[2018-09-27] MEDS: Morphine 2 MG/ML Syringe IVPUSH PRN ×3 (11:10→18:15)
--- NOTE | 2018-09-27 15:44 | PCM.SURGPN ---
- General Info Date of Service: 09/27/18 Date of Surgery/Procedure: 09/26/18 POD#: 1 Post-Op Diagnosis: right breast cancer reconstruction Admission Diagnosis/Problem: Breast asymmetry following reconstructive surgery Functional Status: Reports: Pain Controlled (but using IV meds), Tolerating Diet , Ambulating, Incentive Spirometry - Review of Systems General: Reports: No Symptoms HEENT: Reports: No Symptoms Pulmonary: Reports: No Symptoms Musculoskeletal: Reports: Back Pain Skin: Reports: Bruising (minimal) Neurological: Reports: No Symptoms Psychiatric: Reports: No Symptoms - Patient Data Vitals - Most Recent: Last Vital Signs Temp 99.3 F 09/27/18 11:00 Pulse 77 09/27/18 11:00 Resp 18 09/27/18 11:00 BP 122/68 09/27/18 11:00 Pulse Ox 98 09/27/18 11:00 Weight - Most Recent: 125 lb I&O - Last 24 Hours: Intake & Output 09/26/18 09/27/18 09/27/18 23:59 07:59 15:59 Intake Total 2250 Output Total 160 700 Balance -160 1550 Med Orders - Current: Current Medications Hydrocodone Bitart/Acetaminophen ([place] 325-5 Mg) 1 tab PO Q4H PRN PRN Reason: Pain Last Admin: 09/27/18 12:28 Dose: 2 tab Anastrozole (Arimidex) 1 mg PO DAILY [facility] Aspirin (Aspirin) 81 mg PO DAILY [facility] Atorvastatin Calcium (Lipitor) 40 mg PO BEDTIME [facility] Calcium Carbonate/Glycine (Tums) 500 mg CHEW BID [facility] Cholecalciferol (Vitamin D3) 2,000 units PO DAILY [facility] Diphenhydramine HCl (Benadryl) 25 mg PO Q6H PRN PRN Reason: Itching Escitalopram Oxalate (Lexapro) 20 mg PO DAILY [facility] Hydrochlorothiazide (Hydrochlorothiazide) 12.5 mg PO DAILY [facility] Ibuprofen (Motrin) 600 mg PO Q6H PRN PRN Reason: Pain (mild 1-3) Last Admin: 09/27/18 10:07 Dose: 600 mg Lisinopril (Prinivil) 20 mg PO DAILY [facility] Lorazepam (Ativan) 1 mg PO TID PRN PRN Reason: Anxiety Morphine Sulfate (Morphine) 1 mg IVPUSH Q2H PRN PRN Reason: Pain (severe 7-10) Last Admin: 09/27/18 13:45 Dose: 1 mg Ondansetron HCl (Zofran Odt) 4 mg PO Q6H PRN PRN Reason: Nausea/Vomiting Ondansetron HCl (Zofran) 4 mg IVPUSH Q6H PRN PRN Reason: Nausea/Vomiting Sertraline HCl (Zoloft) 100 mg PO DAILY [facility] Temazepam (Restoril) 15 mg PO BEDTIME PRN PRN Reason: Insomnia Discontinued Medications Albuterol (Proventil Neb Soln) 2.5 mg NEB ONETIME PRN PRN Reason: Wheezing Atropine Sulfate (Atropine 0.1 Mg/Ml) 0.5 mg IVPUSH ASDIRECTED PRN PRN Reason: Hypo-perfusion Atropine Sulfate (Atropine 0.1 Mg/Ml) 1 mg IVPUSH ASDIRECTED PRN PRN Reason: Hypo-Perfusion Bupivacaine HCl/Epinephrine Bitart (Marcaine 0.25%/Epinephrine 1:200,000) 30 ml INJECT ONETIME ONE Stop: 09/26/18 08:01 Last Admin: 09/26/18 20:15 Dose: Not Given Bupivacaine Liposome (Exparel) 20 ml INFILT ONETIME ONE Stop: 09/26/18 08:15 Last Admin: 09/26/18 20:15 Dose: Not Given Cefazolin Sodium/Dextrose (Ancef) Confirm Administered Dose 2 gm IV .STK-MED ONE Stop: 09/26/18 11:44 Last Admin: 09/26/18 20:15 Dose: Not Given Dextrose/Water (Dextrose 50% In Water) 50 ml IVPUSH ASDIRECTED PRN PRN Reason: Hypoglycemia Epinephrine HCl (Adrenalin) Confirm Administered Dose 1 mg .ROUTE .STK-MED ONE Stop: 09/26/18 09:17 Epinephrine HCl (Epinephrine 1:10,000) 1 mg IVPUSH ASDIRECTED PRN PRN Reason: ACLS Guidelines Fentanyl (Sublimaze) Confirm Administered Dose 250 mcg .ROUTE .STK-MED ONE Stop: 09/26/18 08:28 Fentanyl (Sublimaze) Confirm Administered Dose 100 mcg .ROUTE .STK-MED ONE Stop: 09/26/18 14:40 Fentanyl (Sublimaze) 50 - 100 mcg IVPUSH Q5M PRN PRN Reason: Pain Last Admin: 09/26/18 16:19 Dose: 50 mcg Fentanyl (Sublimaze) Confirm Administered Dose 100 mcg .ROUTE .STK-MED ONE Stop: 09/26/18 15:45 Last Admin: 09/26/18 20:15 Dose: Not Given Hydromorphone HCl (Dilaudid) Confirm Administered Dose 2 mg .ROUTE .STK-MED ONE Stop: 09/26/18 12:55 Cefazolin Sodium/Dextrose 2 gm (/ Premix) 50 mls @ 100 mls/hr IV ONETIME ONE Stop: 09/26/18 08:29 Last Admin: 09/26/18 20:15 Dose: Not Given Lactated Ringer's (Ringers, Lactated) 1,000 mls @ 125 mls/hr IV ASDIRECTED [facility] Bupivacaine HCl/Epinephrine Bitart (Sensorc Mpf 0.25%-Epi 1:[id number]) Confirm Administered Dose 30 mls @ as directed .ROUTE .ST-MED ONE Stop: 09/26/18 07:34 Lidocaine HCl (Xylocaine-Mpf 1%) Confirm Administered Dose 5 mls @ as directed .ROUTE .ST-MED ONE Stop: 09/26/18 08:28 Labetalol HCl (Normodyne) 10 mg IVPUSH ONETIME ONE; Protocol Stop: 09/26/18 16:17 Last Admin: 09/26/18 16:29 Dose: 2 ml Metoclopramide HCl (Reglan) Confirm Administered Dose 10 mg .ROUTE .ST-MED ONE Stop: 09/26/18 13:08 Midazolam HCl (Versed 1 Mg/Ml) Confirm Administered Dose 2 mg .ROUTE .ST-MED ONE Stop: 09/26/18 08:28 Naloxone HCl (Narcan) 0.1 mg IVPUSH ASDIRECTED PRN PRN Reason: Respiratory Depression Octyl Cyanoacrylate (Dermabond Advance) Confirm Administered Dose 1 applic .ROUTE .STK-MED ONE Stop: 09/26/18 07:34 Ondansetron HCl (Zofran) Confirm Administered Dose 4 mg .ROUTE .STK-MED ONE Stop: 09/26/18 08:28 Ondansetron HCl (Zofran) Confirm Administered Dose 4 mg .ROUTE .STK-MED ONE Stop: 09/26/18 12:37 Phenylephrine HCl (Phenylephrine In Ns 100 Mcg/Ml) Confirm Administered Dose 1 mg .ROUTE .STK-MED ONE Stop: 09/26/18 12:41 Propofol (Diprivan 20 Ml) Confirm Administered Dose 200 mg .ROUTE .STK-MED ONE Stop: 09/26/18 08:28 Propofol (Diprivan 20 Ml) Confirm Administered Dose 200 mg .ROUTE .STK-MED ONE Stop: 09/26/18 13:21 Rocuronium [place] (Zemuron) Confirm Administered Dose 100 mg .ROUTE .STK-MED ONE Stop: 09/26/18 08:28 Scopolamine (Transderm-Scop) Confirm Administered Dose 1.5 mg .ROUTE .STK-MED ONE Stop: 09/26/18 11:49 Last Admin: 09/26/18 20:15 Dose: Not Given Scopolamine (Transderm-Scop) 1.5 mg TOP ONETIME ONE Stop: 09/26/18 11:52 Last Admin: 09/26/18 20:15 Dose: Not Given - Exam Wound/Incisions: Healing Well, Dressing Dry and Intact, No Drainage. No: Erythema General: Alert, Oriented, Cooperative HEENT: Pupils Reactive, EOMI Lungs: Normal Respiratory Effort Skin: Warm, Dry, Intact (Incisions looking well and very nice viable flap. Swelling superiorly as expected. Excellent progress. ) Neurological: No New Focal Deficit Psy/Mental Status: Alert, Normal Affect, Normal Mood - Problem List & Annotations (1) Breast reconstruction deformity SNOMED Code(s): 864599118424565 Code(s): N65.0 - DEFORMITY OF RECONSTRUCTED BREAST Status: Chronic Priority: High Current Visit: No - Problem List Review Problem List Initiated/Reviewed/Updated: Yes - My Orders Last 24 Hours: Active Orders 24 hr Category Date Time Status Communication Order [RC] ROUTINE Care 09/26/18 20:24 Active Notify Provider Vital Signs [RC] ASDIRECTED Care 09/26/18 15:41 Active Oxygen Therapy [RC] PRN Care 09/26/18 15:41 Active RT Aerosol Therapy [RC] ASDIRECTED Care 09/26/18 15:41 Active Regular Diet [DIET] Diet 09/27/18 Breakfast Active Anastrozole [Arimidex] Med 09/28/18 09:00 Active 1 mg PO DAILY Aspirin Med 09/28/18 09:00 Active 81 mg PO DAILY Calcium Carbonate [Tums] Med 09/27/18 21:00 Active 500 mg CHEW BID Cholecalciferol (Vitamin D3) [Vitamin D3] Med 09/28/18 09:00 Active 2,000 units PO DAILY Escitalopram [Lexapro] Med 09/28/18 09:00 Active 20 mg PO DAILY LORazepam [Ativan] Med 09/27/18 10:52 Active 1 mg PO TID PRN Lisinopril [Prinivil] Med 09/28/18 09:00 Active 20 mg PO DAILY Sertraline [Zoloft] Med 09/28/18 09:00 Active 100 mg PO DAILY Temazepam [Restoril] Med 09/27/18 10:52 Active 15 mg PO BEDTIME PRN atorvaSTATin [Lipitor] Med 09/27/18 21:00 Active 40 mg PO BEDTIME hydroCHLOROthiazide Med 09/28/18 09:00 Active 12.5 mg PO DAILY Medication Orders Hydrocodone Bitart/Acetaminophen ([place] 325-5 Mg) 1 tab PO Q4H PRN PRN Reason: Pain Last Admin: 09/27/18 12:28 Dose: 2 tab Admin: 09/27/18 07:39 Dose: 2 tab Admin: 09/27/18 03:09 Dose: 1 tab Admin: 09/26/18 21:59 Dose: 2 tab Anastrozole (Arimidex) 1 mg PO DAILY [facility] Aspirin (Aspirin) 81 mg PO DAILY [facility] Atorvastatin Calcium (Lipitor) 40 mg PO BEDTIME [facility] Calcium Carbonate/Glycine (Tums) 500 mg CHEW BID [facility] Cholecalciferol (Vitamin D3) 2,000 units PO DAILY [facility] Diphenhydramine HCl (Benadryl) 25 mg PO Q6H PRN PRN Reason: Itching Escitalopram Oxalate (Lexapro) 20 mg PO DAILY [facility] Hydrochlorothiazide (Hydrochlorothiazide) 12.5 mg PO DAILY [facility] Ibuprofen (Motrin) 600 mg PO Q6H PRN PRN Reason: Pain (mild 1-3) Last Admin: 09/27/18 10:07 Dose: 600 mg Lisinopril (Prinivil) 20 mg PO DAILY [facility] Lorazepam (Ativan) 1 mg PO TID PRN PRN Reason: Anxiety Morphine Sulfate (Morphine) 1 mg IVPUSH Q2H PRN PRN Reason: Pain (severe 7-10) Last Admin: 09/27/18 13:45 Dose: 1 mg Admin: 09/27/18 11:10 Dose: 1 mg Admin: 09/26/18 19:38 Dose: 1 mg Ondansetron HCl (Zofran Odt) 4 mg PO Q6H PRN PRN Reason: Nausea/Vomiting Ondansetron HCl (Zofran) 4 mg IVPUSH Q6H PRN PRN Reason: Nausea/Vomiting Sertraline HCl (Zoloft) 100 mg PO DAILY [facility] Temazepam (Restoril) 15 mg PO BEDTIME PRN PRN Reason: Insomnia - Assessment Assessment (Free Text/Narrative):: POD healing well. Still with discomfort and using IV meds but improving. - Plan Plan (Free Text/Narrative):: Continue drain cares, compression bra and ambulation. SCD's while in bed. Keflex while drains in place. Wean IV meds.
[2018-09-27] MEDS: Cephalexin 500 MG Cap PO SCH (19:26)
[2018-09-27] MEDS ORDERED: atorvaSTATin 40 MG Tab PO SCH (21:00)
[2018-09-27] MEDS: Calcium Carbonate 500 MG Tab.Chew CHEW SCH (21:33)
--- NOTE | 2018-09-27 22:49 | OR ---
SURGEON: DOROTHY BERMAN MD DATE OF PROCEDURE: 09/26/2018 PREOPERATIVE DIAGNOSIS: Right breast radiation changes and scar tissue status post lumpectomy and radiation for breast cancer. POSTOPERATIVE DIAGNOSIS: Right breast radiation changes and scar tissue status post lumpectomy and radiation for breast cancer. PROCEDURES: Right breast reconstruction with latissimus flap. MARIONETTE PERFORMER: IBIS Fan. ANESTHESIA: General ET tube with local. REASON FOR AND ROLE OF MARIONETTE PERFORMER: Retraction, prepping, draping, positioning and closure assistance. INDICATIONS: Ms. Del Rio is a 63-year-old female with a history of right breast cancer that was excised with lumpectomy and radiation. Unfortunately, she has had significant radiation damage to the skin and has tried other measures including conservative measures and fat grafting. Unfortunately, she still has a very prominent hard mound on the right compared to the soft normal lateral breast on the left. Risks and benefits of latissimus flap were discussed with her including, but not limited to, bleeding, infection, damage to underlying or overlying structures, possible need for future interventions, possible scarring. PROCEDURE IN DETAIL: After informed consent was obtained and placed on chart, the patient was brought to the operating theater and laid in supine position. After adequate general anesthesia was obtained the area was prepped and draped and time-out was completed to confirm side and site. The patient was laid in the left lateral decubitus position, and after being prepped and draped in a normal fashion, attention was then paid to the latissimus markings made in the preanesthesia area. The elliptical skin paddle was designed and dissection was carried down through the skin taking care to elevate the superior and inferior flaps while locating the latissimus muscle. Once the muscle edges were located superiorly, dissection was taken from medial to lateral for elevation of the latissimus itself. A portion of the muscle was taken and isolated on its visible pedicle from the underside of the muscle. Once this was traced to the armpit and the axillary line of pedicle, meticulous hemostasis was obtained. The back was copiously irrigated and a deep 2-0 PDS Stratafix suture was used to close the fascia. A deep 3-0 PDS suture was used to close the dermis and a running 4-0 Stratafix suture was used to close the skin. The wound was dressed with Steri-Strips, ABDs, and the patient was then laid into the supine position after tunneling the flap into the left anterior breast cavity. A size 7 SHARATH drain had been placed in the right latissimus area, was sutured in place and hooked to bulb suction. The patient was laid into the supine position and the anterior chest was re- prepped and draped in a standard fashion. A small incision was made at the right side of the breast and the latissimus flap was easily located and brought through. The significantly scarred and fibrosed inferior pole of the right breast was excised and sent for pathology. The skin flap superiorly was dissected around the deeper breast mound and unfortunately the deeper tissue was significantly involved in radiation changes. It was quite firm and next to impossible to smooth well. A significant amount of this right breast tissue was removed in order to give her better contour as we had discussed. This was sent for pathology, and the specimens were discussed with our pathology team as well. Once the significant radiation changes were excised, attention was then paid to inset of the latissimus flap. Under appropriate tension, the latissimus flap was redraped and the 3-0 Monocryl Stratafix suture was used to secure the muscle itself to the underlying pectoralis fascia. The skin was then reapproximated using 3-0 Monocryl Stratafix stitch for reapproximation and redraping of the dermis. This was stapled in place first. The patient was sat up and adequate symmetry with the opposite side was appreciated. The right breast will be somewhat smaller as we did have to excise more damaged tissue than anticipated as discussed with her. Once adequately redraped and appropriate position was appreciated, the patient was laid back in the supine position. After meticulous hemostasis, the skin itself was closed using 3-0 Monocryl Stratafix suture for the dermis and a running 4-0 Stratafix suture for the skin. A size 7 SHARATH drain was also placed in the submuscular sub-flap plane. This was brought out laterally and sutured in place as well. Once this was completed, the wounds were dressed with Steri- Strips, fluffs, and ABD's, and she was placed in a compression bra for support and comfort. The patient tolerated this well. All counts and needles were correct at the end of the case. FOLLOWUP INSTRUCTIONS: The patient will be maintained in the hospital for pain control, and we will continue close observation. SHAHANA / ALTHEA /[id number]
[2018-09-28] MEDS: Cephalexin 500 MG Cap PO SCH ×3 (00:02→11:53)
[2018-09-28] MEDS: Ibuprofen 600 MG Tab PO PRN (02:15)
[2018-09-28] MEDS: Acetaminophen/HYDROcodone 325-5 MG Tab PO PRN ×2 (04:00→11:53)
[2018-09-28] MEDS: Calcium Carbonate 500 MG Tab.Chew CHEW SCH (08:29)
[2018-09-28] MEDS ORDERED: Cholecalciferol (Vitamin D3) 1,000 Unit Tab PO SCH (09:00)
[2018-09-28] MEDS ORDERED: Escitalopram 10 MG Tab PO SCH (09:00)
[2018-09-28] MEDS ORDERED: Lisinopril 10 MG Tab PO SCH (09:00)
[2018-09-28] MEDS ORDERED: Aspirin 81 MG Tab.Chew PO SCH (09:00)
[2018-09-28] MEDS ORDERED: Anastrozole 1 MG Tab PO SCH (09:00)
[2018-09-28] MEDS ORDERED: Sertraline 100 MG Tab PO SCH (09:00)
[2018-09-28] MEDS ORDERED: Hydrochlorothiazide 12.5 MG Cap PO SCH (09:00)
[2018-09-28 11:44] VITALS: BP 130/75
== END 2018-09-28 12:00 | disposition home or self-care (01) ==
LOC: MW.SDS 09:42 → EDSTATUS 11:15 → MW.MS 12:00 → MW.SDS 12:00 → MW.MS 18:25
PROVIDERS: ADMIT Plastic Surgery; ATTEND Plastic Surgery
DX: N60.31 Fibrosclerosis of right breast (principal); N64.1 Fat necrosis of breast; I10 Essential (primary) hypertension; E78.00 Pure hypercholesterolemia, unspecified; F32.9 Major depressive disorder, single episode, unspecified; F41.9 Anxiety disorder, unspecified; F17.210 Nicotine dependence, cigarettes, uncomplicated; Z79.82 Long term (current) use of aspirin; Z79.899 Other long term (current) drug therapy
CPT/HCPCS: 19361; 96374; 96375; 96376; A9270; G0378; J1170; J2001; J2250; J2270; J2370; J2405; J2704; J2765; J3010; J3490; 00402; 88305; 88312; J0171

== ENCOUNTER 2018-12-29 16:27 | Emergency (ER) | payer BC ==
--- NOTE | 2018-12-29 16:29 | EDM.PDOC ---
ED HPI GENERAL MEDICAL PROBLEM - General Chief Complaint: Skin Complaint Stated Complaint: PT HAS CAT BITE ON RT ARM Time Seen by Provider: 12/29/18 16:29 Source of Information: Reports: Patient History Limitations: Reports: No Limitations - History of Present Illness INITIAL COMMENTS - FREE TEXT/NARRATIVE: HISTORY AND PHYSICAL: History of present illness: Patient is a 63-year-old female who presents to the emergency room with concerns of a Bite to her right forearm. She states she was playing with one of the barn cats yesterday and when she had stopped playing the cat had playfully came up and bit her arm. Over the past 24 hours the area has become red and painful to palpation. She believes she needs antibiotics at this time. Patient denies any fever, chills, headache, change in vision, syncope or near syncope. Denies any chest pain, back pain, shortness of breath or cough. Denies any GI or symptoms. Patient has been eating and drinking appropriately. Review of systems: As per history of present illness and below otherwise all systems reviewed and negative. Past medical history: As per history of present illness and as reviewed below otherwise noncontributory. Surgical history: As per history of present illness and as reviewed below otherwise noncontributory. Social history: See social history for further information Family history: As per history of present illness and as reviewed below otherwise noncontributory. Physical exam: General: Well-developed and well-nourished 63-year-old female. Alert and oriented. Appearing and in no acute distress. HEENT: Atraumatic, normocephalic, pupils equal and reactive bilaterally, negative for conjunctival pallor or scleral icterus, mucous membranes moist, trachea midline. No drooling or trismus noted. No meningeal signs. No hot potato voice noted. Lungs: Clear to auscultation, breath sounds equal bilaterally, chest nontender. Heart: S1S2, regular rate and rhythm without overt murmur Abdomen: Soft, nondistended, nontender. Skin: Patient has erythema and soft tissue swelling to the ulnar aspect of her mid forearm. This was outlined with marker. Nonfluctuant and not indurated. Otherwise skin is intact, warm, dry. No lesions or rashes noted. Extremities: Moves all extremities per self without difficulty or deficits, negative for cords or calf pain. Neurovascular unremarkable. Neuro: Awake, alert, oriented. Cranial nerves II through XII unremarkable. Cerebellum unremarkable. Motor and sensory unremarkable throughout. Exam nonfocal. Notes: We discussed rabies vaccines and these were offered to her. She states although the cat is not immunized she is like a family pet and has low suspicious of rabies. Information on rabies vaccines was given to the patient and at bedside. We discussed signs and symptoms that would prompt her to return to the emergency room. Supportive care measures were reviewed and discussed. Voices understanding and is agreeable to plan of care. Denies any further questions or concerns at this time. Diagnostics: None Therapeutics: Wound care, outlining of the cellulitis Prescription: Augmentin Impression: Animal Bite Plan: 1. Keep the wound clean and dry. Wash twice daily with gentle soap and water 2. Tylenol and/or Ibuprofen as needed for pain 3. Follow up with your primary care provider as discussed. Return to the ED as needed as discussed. Definitive disposition and diagnosis as appropriate pending reevaluation and review of above. Right Arm Pain Score (Numeric/FACES): 6 - Related Data Allergies Allergy/AdvReac Type Severity Reaction Status Date / Time No Known Allergies Allergy Verified 12/29/18 16:36 Home Meds: Home Meds Calcium Carbonate [Calcium] 500 mg CHEW BID 05/16/17 [History] Cholecalciferol (Vitamin D3) [Vitamin D3] 2,000 units PO DAILY 05/16/17 [History ] Anastrozole [Arimidex] 1 mg PO DAILY 05/17/18 [History] Aspirin 81 mg PO DAILY 05/17/18 [History] Escitalopram [Lexapro] 20 mg PO DAILY 05/17/18 [History] Lisinopril/Hydrochlorothiazide [Lisinopril-Hctz 20-12.5 mg Tab] 1 tab PO DAILY 05/17/18 [History] LORazepam 1 mg PO TID PRN 09/24/18 [History] Sertraline HCl [Zoloft] 100 mg PO DAILY 09/27/18 [History] Ibuprofen [Motrin] 600 mg PO Q6H PRN tablet 09/28/18 [Rx] Acetaminophen/HYDROcodone [[place] 325-5 MG] 1 tab PO Q4H PRN #15 tablet 12/29/18 [Rx] Amoxicillin/Clavulanate K [Augmentin 875-125 MG] 1 tab PO BID #20 tablet [Rx] Gabapentin [Neurontin] 300 mg PO DAILY 12/29/18 [History] Past Medical History HEENT History: Reports: Allergic Rhinitis, Other (See Below) Other HEENT History: wears glasses Cardiovascular History: Reports: High Cholesterol, Hypertension Respiratory History: Reports: None Gastrointestinal History: Reports: Other (See Below) Genitourinary History: Reports: None [employer] History: Reports: Musculoskeletal History: Reports: Arthritis, Fracture Neurological History: Reports: None, Other (See Below) Psychiatric History: Reports: Anxiety, Depression Endocrine/Metabolic History: Reports: None Hematologic History: Reports: None Immunologic History: Reports: None Oncologic (Cancer) History: Reports: Breast Dermatologic History: Reports: None - Infectious Disease History Infectious Disease History: Reports: Chicken Pox, Measles, Mumps - Past Surgical History Head Surgeries/Procedures: Reports: None HEENT Surgical History: Reports: Oral Surgery GI Surgical History: Reports: Appendectomy, Cholecystectomy, Colonoscopy, EGD Female Surgical History: Reports: Breast Biopsy, Breast Reconstruction, Breast Reduction, Hysterectomy Other Female Surgeries/Procedures: hx breast reduction, laparoscopy for lysis of adhesions, hysterectomy, breast lumpectomy, sentinel lymph node bx Endocrine Surgical History: Reports: None Neurological Surgical History: Reports: None Musculoskeletal Surgical History: Reports: Carpal Tunnel, Shoulder Surgery Other Musculoskeletal Surgeries/Procedures:: hx bilat. bunionectomy, shoulder surgery (clavicle resection), surgical repair fx ankle with plate and screws, CTR, removal of screw in ankle, cyst removed from left ankle Oncologic Surgical History: Reports: None Social & Family History - Family History Family Medical History: Noncontributory - Caffeine Use Caffeine Use: Reports: None Caffeine Use Comment: occassionally ED ROS GENERAL - Review of Systems Review Of Systems: ROS reveals no pertinent complaints other than HPI. ED EXAM, SKIN/RASH Exam: See Below (See dictation) Course - Vital Signs Last Recorded V/S: Last Vital Signs Temp 97.1 F 12/29/18 17:26 Pulse 84 12/29/18 17:26 Resp 18 12/29/18 17:26 BP 113/70 12/29/18 17:26 Pulse Ox 95 12/29/18 17:26 - Orders/Labs/Meds Meds: Medications Discontinued Medications Generic Name Dose Route Start Last Admin Trade Name Freq PRN Reason Stop Dose Admin Tramadol HCl 50 mg 12/29/18 17:07 12/29/18 17:20 Ultram PO 12/29/18 17:08 Not Given ONETIME ONE Departure - Departure Time of Disposition: 17:10 Disposition: Home, Self-Care 01 Clinical Impression: Animal bite - Discharge Information Prescriptions: Acetaminophen/HYDROcodone [[place] 325-5 MG] 1 tab PO Q4H PRN #15 tablet PRN Reason: Pain Amoxicillin/Clavulanate K [Augmentin 875-125 MG] 1 tab PO BID #20 tablet Instructions: Animal Bite, Adult, [id number] Referrals: PCP,None [Primary Care Provider] - Forms: ED Department Discharge Additional Instructions: The following information is given to patients seen in the emergency department who are being discharged to home. This information is to outline your options for follow-up care. We provide all patients seen in our emergency department with a follow-up referral. The need for follow-up, as well as the timing and circumstances, are variable depending upon the specifics of your emergency department visit. If you don't have a primary care physician on staff, we will provide you with a referral. We always advise you to contact your personal physician following an emergency department visit to inform them of the circumstance of the visit and for follow-up with them and/or the need for any referrals to a consulting specialist. The emergency department will also refer you to a specialist when appropriate. This referral assures that you have the opportunity for follow-up care with a specialist. All of these measure are taken in an effort to provide you with optimal care, which includes your follow-up. Under all circumstances we always encourage you to contact your private physician who remains a resource for coordinating your care. When calling for follow-up care, please make the office aware that this follow-up is from your recent emergency room visit. If for any reason you are refused follow-up, please contact the [facility] at and asked to speak to the emergency department charge nurse. [facility] [address] [place] [id number] [place] [address] 1. Keep the wound clean and dry. Wash twice daily with gentle soap and water. Continue to monitor for signs of improvement. Take the antibiotic as prescribed. 2. Tylenol and/or Ibuprofen as needed for pain 3. Follow up with your primary care provider as discussed. Return to the ED as needed as discussed.
[2018-12-29] MEDS ORDERED: traMADol 50 MG Tab PO ONE (17:07)
[2018-12-29 17:33] VITALS: BP 113/70; PULSE 84
== END 2018-12-29 17:26 | disposition home or self-care (01) ==
LOC: MW.ED 16:27
DX: S51.851A Open bite of right forearm, initial encounter (principal); I10 Essential (primary) hypertension; F41.9 Anxiety disorder, unspecified; F32.9 Major depressive disorder, single episode, unspecified; M19.90 Unspecified osteoarthritis, unspecified site; Z79.82 Long term (current) use of aspirin; Z79.899 Other long term (current) drug therapy; Z90.49 Acquired absence of other specified parts of digestive tract; Z98.890 Other specified postprocedural states; W55.01XA Bitten by cat, initial encounter
CPT/HCPCS: 99283

== ENCOUNTER 2019-01-03 01:52 | Emergency (ER) | payer BC ==
--- NOTE | 2019-01-03 02:14 | EDM.PDOC ---
<Dalton Veras - Last Filed: 01/03/19 02:23> ED HPI GENERAL MEDICAL PROBLEM - General Chief Complaint: Lower Extremity Injury/Pain Stated Complaint: POSSIBLE BROKEN RIGHT ANKLE Time Seen by Provider: 01/03/19 02:07 - History of Present Illness INITIAL COMMENTS - FREE TEXT/NARRATIVE: HISTORY AND PHYSICAL: History of present illness: Nel is a 63 year old female who presents to the emergency department for the evaluation of right ankle pain. At approximately 1700 the patient was sweeping rocks from her sidewalk with her foot. The patient lost her balance and twisted her ankle landing on her bottom. She denies hitting her head or any loss of consciousness. The patient attempted to treat her ankle with ice and Tylenol which have not been effective for pain relief. Review of systems: As per history of present illness and below otherwise all systems reviewed and negative. Past medical history: As per history of present illness and as reviewed below otherwise noncontributory. Surgical history: As per history of present illness and as reviewed below otherwise noncontributory. Social history: No reported history of drug or alcohol abuse. Family history: As per history of present illness and as reviewed below otherwise noncontributory. Physical exam: HEENT: Atraumatic, normocephalic, pupils reactive, negative for conjunctival pallor or scleral icterus, mucous membranes moist, throat clear, neck supple, nontender, trachea midline. Lungs: Clear to auscultation, breath sounds equal bilaterally, chest nontender. Heart: S1S2, regular, negative for clicks, rubs, or JVD. Abdomen: Soft, nondistended, nontender. Negative for masses or hepatosplenomegaly. Negative for costovertebral tenderness. Pelvis: Stable nontender. Genitourinary: Deferred. Rectal: Deferred. Extremities: Swelling to the right lateral malleolus. No ecchymosis. Limited range of motion of the ankle. ROM intact to the knee and hip. Neuro: Awake, alert, oriented. Cranial nerves II through XII unremarkable. Cerebellum unremarkable. Motor and sensory unremarkable throughout. Exam nonfocal. Diagnostics: 3 V ankle Therapeutics: Toradol Impression: Right Ankle Sprain Plan: Xray demonstrating no acute fracture. The patient will be fitted for a cam boot , ortho consult and given a pair of crutches. The plan of care was reviewed with the patient she is in agreement. Definitive disposition and diagnosis as appropriate pending reevaluation and review of above. right ankle Pain Score (Numeric/FACES): 10 - Related Data Allergies Allergy/AdvReac Type Severity Reaction Status Date / Time No Known Allergies Allergy Verified 01/03/19 01:57 Home Meds: Home Meds Calcium Carbonate [Calcium] 500 mg CHEW BID 05/16/17 [History] Cholecalciferol (Vitamin D3) [Vitamin D3] 2,000 units PO DAILY 05/16/17 [History ] Anastrozole [Arimidex] 1 mg PO DAILY 05/17/18 [History] Aspirin 81 mg PO DAILY 05/17/18 [History] Escitalopram [Lexapro] 20 mg PO DAILY 05/17/18 [History] Lisinopril/Hydrochlorothiazide [Lisinopril-Hctz 20-12.5 mg Tab] 1 tab PO DAILY 05/17/18 [History] LORazepam 1 mg PO TID PRN 09/24/18 [History] Sertraline HCl [Zoloft] 100 mg PO DAILY 09/27/18 [History] Ibuprofen [Motrin] 600 mg PO Q6H PRN tablet 09/28/18 [Rx] Acetaminophen/HYDROcodone [Enderlin 325-5 MG] 1 tab PO Q4H PRN #15 tablet 12/29/18 [Rx] Amoxicillin/Clavulanate K [Augmentin 875-125 MG] 1 tab PO BID #20 tablet [Rx] Gabapentin [Neurontin] 300 mg PO DAILY 12/29/18 [History] Past Medical History HEENT History: Reports: Allergic Rhinitis, Other (See Below) Other HEENT History: wears glasses Cardiovascular History: Reports: High Cholesterol, Hypertension Respiratory History: Reports: None Gastrointestinal History: Reports: Other (See Below) Genitourinary History: Reports: None 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: Musculoskeletal History: Reports: Arthritis, Fracture Neurological History: Reports: None, Other (See Below) Psychiatric History: Reports: Anxiety, Depression Endocrine/Metabolic History: Reports: None Hematologic History: Reports: None Immunologic History: Reports: None Oncologic (Cancer) History: Reports: Breast Dermatologic History: Reports: None - Infectious Disease History Infectious Disease History: Reports: Chicken Pox, Measles, Mumps - Past Surgical History Head Surgeries/Procedures: Reports: None HEENT Surgical History: Reports: Oral Surgery GI Surgical History: Reports: Appendectomy, Cholecystectomy, Colonoscopy, EGD Female Surgical History: Reports: Breast Biopsy, Breast Reconstruction, Breast Reduction, Hysterectomy Other Female Surgeries/Procedures: hx breast reduction, laparoscopy for lysis of adhesions, hysterectomy, breast lumpectomy, sentinel lymph node bx Endocrine Surgical History: Reports: None Neurological Surgical History: Reports: None Musculoskeletal Surgical History: Reports: Carpal Tunnel, Shoulder Surgery Other Musculoskeletal Surgeries/Procedures:: hx bilat. bunionectomy, shoulder surgery (clavicle resection), surgical repair fx ankle with plate and screws, CTR, removal of screw in ankle, cyst removed from left ankle Oncologic Surgical History: Reports: None Social & Family History - Family History Family Medical History: Noncontributory - Tobacco Use Smoking Status *Q: Current Every Day Smoker Years of Tobacco use: 40 Packs/Tins Daily: 1 - Caffeine Use Caffeine Use: Reports: None Caffeine Use Comment: occassionally - Recreational Drug Use Recreational Drug Use: No Course - Vital Signs Last Recorded V/S: Last Vital Signs Temp 36.1 C 01/03/19 01:56 Pulse 85 01/03/19 01:56 Resp 18 01/03/19 01:56 BP 148/93 H 01/03/19 01:56 Pulse Ox 97 01/03/19 01:56 - Orders/Labs/Meds Orders: Active Orders 24 hr Category Date Time Status DME for Discharge [COMM] Stat Oth 01/03/19 02:23 Ordered Meds: Medications Discontinued Medications Generic Name Dose Route Start Last Admin Trade Name Freq PRN Reason Stop Dose Admin Ketorolac Tromethamine 60 mg 01/03/19 02:28 Toradol IM 01/03/19 02:29 ONETIME ONE Departure - Departure Disposition: Home, Self-Care 01 Clinical Impression: Right ankle injury Qualifiers: Encounter type: initial encounter Qualified Code(s): S99.911A - Unspecified injury of right ankle, initial encounter - Discharge Information Instructions: Ankle Sprain, [id number] Referrals: PCP,None [Primary Care Provider] - Forms: ED Department Discharge Additional Instructions: The following information is given to patients seen in the emergency department who are being discharged to home. This information is to outline your options for follow-up care. We provide all patients seen in our emergency department with a follow-up referral. The need for follow-up, as well as the timing and circumstances, are variable depending upon the specifics of your emergency department visit. If you don't have a primary care physician on staff, we will provide you with a referral. We always advise you to contact your personal physician following an emergency department visit to inform them of the circumstance of the visit and for follow-up with them and/or the need for any referrals to a consulting specialist. The emergency department will also refer you to a specialist when appropriate. This referral assures that you have the opportunity for followup care with a specialist. All of these measure are taken in an effort to provide you with optimal care, which includes your followup. Under all circumstances we always encourage you to contact your private physician who remains a resource for coordinating your care. When calling for followup care, please make the office aware that this follow-up is from your recent emergency room visit. If for any reason you are refused follow-up, please contact the [facility] emergency department at and ask to speak to the emergency department charge nurse. [facility] Primary care- [place] [id number] Ice and elevate the area as much as possible and do not weight-bear until you' re followed up in the clinic. Where the ortho boot you have been given and remove at sleep times. We do not have orthopedics here at our hospital anymore so you have been given information about follow-up at [facility] in [place]. Please call and tell them your seen in the emergency department and need follow-up for your ankle. Use [id number] medications for pain management and return to ER as needed and as discussed. - My Orders Last 24 Hours: My Active Orders 01/03/19 02:23 DME for Discharge [COMM] Stat - Assessment/Plan Last 24 Hours: My Active Orders 01/03/19 02:23 DME for Discharge [COMM] Stat <Jennifer Keith - Last Filed: 01/03/19 02:37> ED HPI GENERAL MEDICAL PROBLEM - History of Present Illness INITIAL COMMENTS - FREE TEXT/NARRATIVE: Dr. Keith dictating an addendum note as the supervising physician on this case. I agree with history and physical as above and we will also give the patient and ortho boot and crutches. As we no longer have orthopedics here will give her information for follow-up at [facility] in [place]. Patient has refused the ortho boot saying that she "has boots at home for both feet as she has had injuries before". We will give her the crutches. I've advised her not to drive home in light of the injury to that ankle and to take a cab or call for a ride and she is declining at this time. Review of Systems - Review of Systems Review Of Systems: ROS reveals no pertinent complaints other than HPI. ED EXAM, GENERAL - Physical Exam Exam: See Below (See dictation) Departure - Departure Time of Disposition: 02:31 Condition: Good
--- NOTE | 2019-01-03 02:23 | CR ---
INDICATION: Ankle pain following fall TECHNIQUE: Ankle radiograph 3 views right COMPARISON: None FINDINGS: Bone: No acute fractures or aggressive bone lesions are identified. Joint: The ankle mortise joint and the visualized hindfoot joints are unremarkable in appearance. No significant ankle effusion is seen. Soft tissue: Mild lateral swelling noted. The Kager fat pad and the Achilles` tendon is normal in appearance. No radiopaque foreign bodies are seen. IMPRESSION: 1. No acute osseous injuries or abnormalities are noted. Dictated by: Francisco Larsen MD @ 01/03/2019 02:21:44 (Electronically Signed)
[2019-01-03] MEDS ORDERED: Ketorolac 60 MG/2 ML SDV IM ONE (02:28)
[2019-01-03 02:54] VITALS: BP 163/99; PULSE 82
== END 2019-01-03 02:51 | disposition home or self-care (01) ==
LOC: MW.ED 01:52
DX: S93.401A Sprain of unspecified ligament of right ankle, initial encounter (principal); I10 Essential (primary) hypertension; F41.9 Anxiety disorder, unspecified; F32.9 Major depressive disorder, single episode, unspecified; F17.210 Nicotine dependence, cigarettes, uncomplicated; Z79.82 Long term (current) use of aspirin; Z79.899 Other long term (current) drug therapy; X50.1XXA Overexertion from prolonged static or awkward postures, initial encounter
CPT/HCPCS: 73610; 96372; 99283; J1885

== ENCOUNTER 2019-03-22 11:18 | Emergency (ER) | payer BC ==
[2019-03-22] MEDS ORDERED: Sodium Chloride 0.9% 1,000 ML IV ONE (11:40)
--- NOTE | 2019-03-22 11:50 | EDM.PDOC ---
ED HPI GENERAL MEDICAL PROBLEM - General Chief Complaint: General Stated Complaint: DIZZINESS Time Seen by Provider: 03/22/19 11:20 Source of Information: Reports: Patient History Limitations: Reports: No Limitations - History of Present Illness INITIAL COMMENTS - FREE TEXT/NARRATIVE: HISTORY AND PHYSICAL: History of present illness: Patient is a 63-year-old female who presents to the ED today with concern of dizziness. Patient states she does follow with the [facility] and is in remission for breast cancer of her right breast. Patient states she had a lumpectomy of the breast. Patient states she was seen in the cancer center a few days ago and had some lab work done because she had some increasing breast pain. Patient states that she's been having issues diarrhea over the past year after having C. difficile. Patient states over the past couple months she's been having issues with dizziness and was told to come to the ED after having labs drawn and her sodium level was low. Patient states her dizziness today has been per her baseline over the past couple months and has not changed or worsened. Patient denies any other health history or any other symptoms or concerns. Patient states she did have low potassium at her visit and was given 2 pills of potassium that she just took today. Patient denies fever, chills, chest pain, shortness of breath, or cough. Denies headache, neck stiff ness, change in vision, syncope, or near syncope. Denies nausea, vomiting, abdominal pain, diarrhea, constipation, or dysuria. Has not noted any blood in urine or stool. Patient has been eating and drinking appropriately. Review of systems: As per history of present illness and below otherwise all systems reviewed and negative. Past medical history: As per history of present illness and as reviewed below otherwise noncontributory. Surgical history: As per history of present illness and as reviewed below otherwise noncontributory. Social history: See social history for further information Family history: As per history of present illness and as reviewed below otherwise noncontributory. Physical exam: General: Patient is alert, oriented, and in no acute distress. Patient laying comfortably on exam table. HEENT: Atraumatic, normocephalic, pupils equal and reactive bilaterally, negative for conjunctival pallor or scleral icterus, mucous membranes moist, TMs normal bilaterally, throat clear, neck supple, nontender, trachea midline. No drooling or trismus noted. No meningeal signs. No hot potato voice noted. Lungs: Clear to auscultation, breath sounds equal bilaterally, chest nontender. Heart: S1S2, regular rate and rhythm without overt murmur Abdomen: Soft, nondistended, nontender. Negative for masses or hepatosplenomegaly. Negative for costovertebral tenderness. Pelvis: Stable nontender. Genitourinary: Deferred. Rectal: Deferred. Skin: Intact, warm, dry. No lesions or rashes noted. Extremities: Atraumatic, negative for cords or calf pain. Neurovascular unremarkable. Neuro: Awake, alert, oriented. Cranial nerves II through XII unremarkable. Cerebellum unremarkable. Motor and sensory unremarkable throughout. Exam nonfocal. Notes: She was unable to leave a stool sample while in the ED today. Stool collection supplies have been sent home with her to provide and bring back to her lab. Admission for observation was offered to patient but she declines at this time. Voices understanding and is agreeable to plan of care. Denies any further questions or concerns at this time. Diagnostics: CBC, CMP, UA, EKG, chest x-ray, troponin, orthostatic vitals, cdiff, ova and parasite, culture stool Therapeutics: Saline Prescription: None Impression: Dizziness, resolved Hyponatremia H/O diarrhea Plan: 1. Encourage pushing fluids in order to prevent dehydration. 2. Stool collection supplies have been provided to you. Once you unable to leave a sample, you can return this to her lab. 3. Follow-up with your primary care provider as scheduled and as discussed. Return to the ED as needed and as discussed. Definitive disposition and diagnosis as appropriate pending reevaluation and review of above. right breast Pain Score (Numeric/FACES): 8 - Related Data Allergies Allergy/AdvReac Type Severity Reaction Status Date / Time No Known Allergies Allergy Verified 03/22/19 11:28 Home Meds: Home Meds Calcium Carbonate [Calcium] 500 mg CHEW BID 05/16/17 [History] Cholecalciferol (Vitamin D3) [Vitamin D3] 2,000 units PO DAILY 05/16/17 [History ] Anastrozole [Arimidex] 1 mg PO DAILY 05/17/18 [History] Ibuprofen [Motrin] 600 mg PO Q6H PRN tablet 09/28/18 [Rx] Cyclobenzaprine [Flexeril] 5 mg PO TID 03/22/19 [History] Fluconazole [Diflucan] 200 mg PO DAILY 03/22/19 [History] Metoprolol Succinate 25 mg PO DAILY 03/22/19 [History] Potassium Chloride 20 meq PO BID 03/22/19 [History] Past Medical History HEENT History: Reports: Allergic Rhinitis, Other (See Below) Other HEENT History: wears glasses Cardiovascular History: Reports: High Cholesterol, Hypertension Respiratory History: Reports: None Gastrointestinal History: Reports: Other (See Below) Genitourinary History: Reports: None 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: Musculoskeletal History: Reports: Arthritis, Fracture Neurological History: Reports: None, Other (See Below) Psychiatric History: Reports: Anxiety, Depression Endocrine/Metabolic History: Reports: None Hematologic History: Reports: None Immunologic History: Reports: None Oncologic (Cancer) History: Reports: Breast Dermatologic History: Reports: None - Infectious Disease History Infectious Disease History: Reports: Chicken Pox, Measles, Mumps - Past Surgical History Head Surgeries/Procedures: Reports: None HEENT Surgical History: Reports: Oral Surgery GI Surgical History: Reports: Appendectomy, Cholecystectomy, Colonoscopy, EGD Female Surgical History: Reports: Breast Biopsy, Breast Reconstruction, Breast Reduction, Hysterectomy Other Female Surgeries/Procedures: hx breast reduction, laparoscopy for lysis of adhesions, hysterectomy, breast lumpectomy, sentinel lymph node bx Endocrine Surgical History: Reports: None Neurological Surgical History: Reports: None Musculoskeletal Surgical History: Reports: Carpal Tunnel, Shoulder Surgery Other Musculoskeletal Surgeries/Procedures:: hx bilat. bunionectomy, shoulder surgery (clavicle resection), surgical repair fx ankle with plate and screws, CTR, removal of screw in ankle, cyst removed from left ankle Oncologic Surgical History: Reports: None Social & Family History - Family History Family Medical History: Noncontributory - Tobacco Use Smoking Status *Q: Current Every Day Smoker Years of Tobacco use: 40 Packs/Tins Daily: 0.5 - Caffeine Use Caffeine Use: Reports: None Caffeine Use Comment: occassionally - Recreational Drug Use Recreational Drug Use: No ED ROS GENERAL - Review of Systems Review Of Systems: ROS reveals no pertinent complaints other than HPI. ED EXAM, GENERAL - Physical Exam Exam: See Below (See dictation) Course - Vital Signs Last Recorded V/S: Last Vital Signs Temp 96.9 F 03/22/19 11:26 Pulse 95 03/22/19 11:26 Resp 18 03/22/19 11:26 BP 149/92 H 03/22/19 11:26 Pulse Ox 97 03/22/19 11:26 - Orders/Labs/Meds Orders: Active Orders 24 hr Category Date Time Status EKG Documentation Completion [RC] STAT Care 03/22/19 11:23 Active Orthostatic Vital Signs [RC] ASDIRECTED Care 03/22/19 11:41 Active Chest 1V Frontal [CR] Stat Exams 03/22/19 11:23 Taken CDIFF TOX A+B [OP] Stat Lab 03/22/19 11:51 Ordered CULTURE STOOL + CAMPY+SHIGATOX [RM] Stat Lab 03/22/19 11:51 Ordered OVA & PARASITES BY IMMUNOASSAY [MREF] Stat Lab 03/22/19 11:51 Ordered Isolation [COMM] Stat Oth 03/22/19 11:51 Ordered Labs: Laboratory Tests 03/22/19 03/22/19 03/22/19 Range/Units 11:45 12:10 12:10 WBC 5.62 (4.0-11.0) K/uL RBC 3.85 L (4.30-5.90) M/uL Hgb 12.8 (12.0-16.0) g/dL Hct 36.7 (36.0-46.0) % MCV 95.3 (80.0-98.0) fL MCH 33.2 H (27.0-32.0) pg MCHC 34.9 (31.0-37.0) g/dL RDW Std Deviation 47.9 (28.0-62.0) fl RDW Coeff of Farrah 14 (11.0-15.0) % Plt Count 226 (150-400) K/uL MPV 9.30 (7.40-12.00) fL Neut % (Auto) 67.0 (48.0-80.0) % Lymph % (Auto) 19.2 (16.0-40.0) % Spencer % (Auto) 10.9 (0.0-15.0) % Eos % (Auto) 2.5 (0.0-7.0) % Baso % (Auto) 0.4 (0.0-1.5) % Neut # (Auto) 3.8 (1.4-5.7) K/uL Lymph # (Auto) 1.1 (0.6-2.4) K/uL Spencer # (Auto) 0.6 (0.0-0.8) K/uL Eos # (Auto) 0.1 (0.0-0.7) K/uL Baso # (Auto) 0.0 (0.0-0.1) K/uL Nucleated RBC % 0.0 /100WBC Nucleated RBCs # 0 K/uL Sodium 129 L (136-145) mmol/L Potassium 5.6 H (3.5-5.1) mmol/L Chloride 92 L (98-107) mmol/L Carbon Dioxide 24.9 (21.0-32.0) mmol/L BUN 15 (7.0-18.0) mg/dL Creatinine 0.9 (0.6-1.0) mg/dL Est Cr Clr Drug Dosing 54.94 mL/min Estimated GFR (MDRD) > 60.0 ml/min Glucose 88 (74-106) mg/dL Calcium 9.2 (8.5-10.1) mg/dL Total Bilirubin 0.5 (0.2-1.0) mg/dL AST 45 H (15-37) IU/L ALT 33 (14-63) IU/L Alkaline Phosphatase 111 (46-116) U/L Troponin I < 0.050 (0.000-0.056) ng/mL Total Protein 8.3 H (6.4-8.2) g/dL Albumin 4.1 (3.4-5.0) g/dL Globulin 4.2 H (2.6-4.0) g/dL Albumin/Globulin Ratio 1.0 (0.9-1.6) Urine Color YELLOW Urine Appearance CLEAR Urine pH 5.5 (5.0-8.0) Ur Specific [place] 1.010 (1.001-1.035) Urine Protein NEGATIVE (NEGATIVE) mg/dL Urine Glucose (UA) NEGATIVE (NEGATIVE) mg/dL Urine Ketones NEGATIVE (NEGATIVE) mg/dL Urine Occult Blood TRACE-INTACT H (NEGATIVE) Urine Nitrite NEGATIVE (NEGATIVE) Urine Bilirubin NEGATIVE (NEGATIVE) Urine Urobilinogen 0.2 (<2.0) EU/dL Ur Leukocyte Esterase NEGATIVE (NEGATIVE) Urine RBC 0-2 (0-2/HPF) Urine WBC 0-1 (0-5/HPF) Ur Epithelial Cells FEW (NONE-FEW) Urine Bacteria RARE (NEGATIVE) Meds: Medications Discontinued Medications Generic Name Dose Route Start Last Admin Trade Name Fab PRN Reason Stop Dose Admin Sodium Chloride 1,000 mls @ 999 mls/hr 03/22/19 11:40 03/22/19 12:10 Normal Saline IV 03/22/19 12:40 999 mls/hr STAT ONE Administration Departure - Departure Time of Disposition: 13:06 Disposition: Home, Self-Care 01 Clinical Impression: Dizziness, Hyponatremia, History of diarrhea - Discharge Information Referrals: PCP,Unknown [Primary Care Provider] - Forms: ED Department Discharge Additional Instructions: The following information is given to patients seen in the emergency department who are being discharged to home. This information is to outline your options for follow-up care. We provide all patients seen in our emergency department with a follow-up referral. The need for follow-up, as well as the timing and circumstances, are variable depending upon the specifics of your emergency department visit. If you don't have a primary care physician on staff, we will provide you with a referral. We always advise you to contact your personal physician following an emergency department visit to inform them of the circumstance of the visit and for follow-up with them and/or the need for any referrals to a consulting specialist. The emergency department will also refer you to a specialist when appropriate. This referral assures that you have the opportunity for follow-up care with a specialist. All of these measure are taken in an effort to provide you with optimal care, which includes your follow-up. Under all circumstances we always encourage you to contact your private physician who remains a resource for coordinating your care. When calling for follow-up care, please make the office aware that this follow-up is from your recent emergency room visit. If for any reason you are refused follow-up, please contact the [facility] Emergency Department at and asked to speak to the emergency department charge nurse. [facility] [address] [place] [id number] [address] [address] 1. Encourage pushing fluids in order to prevent dehydration. 2. Stool collection supplies have been provided to you. Once you unable to leave a sample, you can return this to her lab. 3. Follow-up with your primary care provider as scheduled and as discussed. Return to the ED as needed and as discussed. - My Orders Last 24 Hours: My Active Orders 03/22/19 11:23 EKG Documentation Completion [RC] STAT Chest 1V Frontal [CR] Stat 03/22/19 11:41 Orthostatic Vital Signs [RC] ASDIRECTED 03/22/19 11:51 CDIFF TOX A+B [OP] Stat CULTURE STOOL + CAMPY+SHIGATOX [RM] Stat OVA & PARASITES BY IMMUNOASSAY [MREF] Stat Isolation [COMM] Stat - Assessment/Plan Last 24 Hours: My Active Orders 03/22/19 11:23 EKG Documentation Completion [RC] STAT Chest 1V Frontal [CR] Stat 03/22/19 11:41 Orthostatic Vital Signs [RC] ASDIRECTED 03/22/19 11:51 CDIFF TOX A+B [OP] Stat CULTURE STOOL + CAMPY+SHIGATOX [RM] Stat OVA & PARASITES BY IMMUNOASSAY [MREF] Stat Isolation [COMM] Stat
[2019-03-22 12:43] LABS: BLOOD UREA NITROGEN,BUN 15 mg/dL (7.0-18.0); CARBON DIOXIDE,CO2 24.9 mmol/L (21.0-32.0); CHLORIDE,CL 92 mmol/L (98-107); GLUCOSE RANDOM 88 mg/dL (74-106); POTASSIUM,K 5.6 mmol/L (3.5-5.1); SODIUM,NA 129 mmol/L (136-145)
[2019-03-22 13:21] VITALS: BP 136/82; PULSE 103
--- NOTE | 2019-03-22 13:22 | CR ---
Chest: Portable view of the chest was obtained. Comparison: Prior chest x-ray of 02/14/18. Increased density is identified which correlates to the costochondral junctions of the 4th, 5th and 6th ribs most likely due to callus from healing fractures at the costochondral junction. Probable healing fracture within the posterior right 8th rib is also noted. Lungs are otherwise clear. Heart size is normal. Tortuous thoracic aorta is seen. Scoliosis and degenerative change is noted within the spine. Surgical clips are seen from prior cholecystectomy. Impression: 1. Healing rib fractures on the right side as noted above. 2. Nothing acute is appreciated on portable chest x-ray. Diagnostic code #2 MTDD
== END 2019-03-22 13:15 | disposition home or self-care (01) ==
LOC: MW.ED 11:18
DX: R42 Dizziness and giddiness (principal); E87.1 Hypo-osmolality and hyponatremia; I10 Essential (primary) hypertension; F17.210 Nicotine dependence, cigarettes, uncomplicated; Z79.899 Other long term (current) drug therapy; Z87.19 Personal history of other diseases of the digestive system
CPT/HCPCS: 36415; 71045; 80053; 81001; 84484; 85025; 93005; 96360; 99284; J7040

== ENCOUNTER 2022-04-28 16:13 | Emergency (ER) | payer MEDICARE, BC ==
[2022-04-28] MEDS ORDERED: Sodium Chloride 0.9% 10 ML Syringe FLUSH PRN ×2 (16:55→16:57)
[2022-04-28] MEDS ORDERED: Sodium Chloride 0.9% 2.5 ML Syringe FLUSH PRN ×2 (16:55→16:57)
[2022-04-28] MEDS ORDERED: Sodium Chloride 0.9% 1,000 ML IV ONE (16:57)
[2022-04-28] MEDS ORDERED: cefTRIAXone 1 GM in Sodium Chloride 0.9% 100 ML IV ONE ×2 (17:00→17:15)
[2022-04-28 17:42] LABS: CARBON DIOXIDE,CO2 25.9 mmol/L (21.0-32.0); POTASSIUM,K 3.2 mmol/L (3.5-5.1)
[2022-04-28] MEDS ORDERED: Sodium Chloride 0.9% 250 ML IV ONE (18:15)
[2022-04-28] MEDS ORDERED: Potassium Chloride 20 MEQ in Premix Bag 1 BAG IV ONE (18:15)
[2022-04-28] MEDS ORDERED: Magnesium Sulfate/Water 4 GM in Premix Bag 1 BAG IV ONE (18:33)
[2022-04-28 19:01] LABS: CORONAVIRUS COVID-19 NAA POSITIVE (NEGATIVE); INFLUENZA A NAA NEGATIVE (NEGATIVE); INFLUENZA B NAA NEGATIVE (NEGATIVE)
[2022-04-28 19:43] VITALS: BP 133/68; PULSE 110
[2022-04-28] MEDS ORDERED: Enoxaparin 60 MG/0.6 ML Syringe SUBCUT ONE (19:54)
[2022-04-28] MEDS ORDERED: Aspirin 81 MG Tab.Chew PO ONE (20:57)
[2022-04-28] MEDS ORDERED: Aspirin 81 MG Tab.Chew ONE (20:58)
== END 2022-04-28 21:10 ==
LOC: MW.ED 16:13
DX: U07.1 COVID-19 (principal); I21.4 Non-ST elevation (NSTEMI) myocardial infarction; E87.6 Hypokalemia; E83.42 Hypomagnesemia; E87.1 Hypo-osmolality and hyponatremia; E78.00 Pure hypercholesterolemia, unspecified; I10 Essential (primary) hypertension; F17.210 Nicotine dependence, cigarettes, uncomplicated; Z79.899 Other long term (current) drug therapy; Z90.49 Acquired absence of other specified parts of digestive tract
CPT/HCPCS: 0240U; 36415; 71045; 80053; 81001; 83605; 83735; 84484; 85025; 85610; 87040; 93005; 96365; 96367; 96368; 96372; 99285; A9270; J0696; J1650; J3370; J3475; J3480; J3490; J7030; J7050; 93010

== ENCOUNTER 2024-11-02 21:25 | Emergency (ER) | payer MEDICARE ==
[2024-11-02] MEDS: oxyCODONE 5 MG Tab PO ONE (22:25)
[2024-11-02] MEDS: Ondansetron 4 MG Tab.DIS PO ONE (22:26)
[2024-11-02] MEDS: HYDROmorphone 0.5 MG/0.5 ML Syringe IVPUSH ONE ×2 (23:07→23:59)
[2024-11-02 23:12] VITALS: BP 132/91
[2024-11-02 23:22] VITALS: PULSE 84
== END 2024-11-03 00:45 ==
LOC: MW.ED 21:25
DX: S82.102A Unspecified fracture of upper end of left tibia, initial encounter for closed fracture (principal); S82.832A Other fracture of upper and lower end of left fibula, initial encounter for closed fracture; I10 Essential (primary) hypertension; Z90.49 Acquired absence of other specified parts of digestive tract; Z90.710 Acquired absence of both cervix and uterus; W10.8XXA Fall (on) (from) other stairs and steps, initial encounter
CPT/HCPCS: 73560; 73590; 96374; 96376; 99284; A9270; 99285